=== PATIENT | female | born 1955 | race Caucasian/White ===

== ENCOUNTER 2019-11-12 16:16 | Outpatient (RCR) | payer BC, SELFPAY | END 2019-12-01 23:59 | disposition home or self-care (01) | LOC: SPT 16:16 | PROVIDERS: PCP Family Medicine; Visit Provider Orthopaedic Surgery | DX: Z47.1 Aftercare following joint replacement surgery (principal); Z96.652 Presence of left artificial knee joint | CPT/HCPCS: 97110; 97161 ==

== ENCOUNTER 2019-12-02 03:52 | Outpatient (RCR) | payer BC, SELFPAY | END 2020-01-01 23:59 | disposition home or self-care (01) | LOC: SPT 03:52 | PROVIDERS: PCP Family Medicine; Visit Provider Orthopaedic Surgery | DX: Z47.1 Aftercare following joint replacement surgery (principal); Z96.652 Presence of left artificial knee joint | CPT/HCPCS: 97110; 97164 ==

== ENCOUNTER 2020-01-02 06:00 | Outpatient (RCR) | payer BC, SELFPAY | END 2020-02-01 23:59 | disposition home or self-care (01) | LOC: SPT 06:00 | PROVIDERS: PCP Family Medicine; Visit Provider Orthopaedic Surgery | DX: Z47.1 Aftercare following joint replacement surgery (principal); Z96.652 Presence of left artificial knee joint | CPT/HCPCS: 97110 ==

== ENCOUNTER 2020-04-04 06:00 | Outpatient (RCR) | payer MEDICARE, SELFPAY | END 2020-05-02 23:59 | disposition home or self-care (01) | LOC: APT 06:00 | PROVIDERS: PCP Family Medicine; Referring Provider Orthopaedic Surgery; Visit Provider Orthopaedic Surgery | DX: Z47.1 Aftercare following joint replacement surgery (principal); Z96.651 Presence of right artificial knee joint | CPT/HCPCS: 97110; 97162 ==

== ENCOUNTER 2020-05-03 06:00 | Outpatient (RCR) | payer MEDICARE, SELFPAY | END 2020-06-02 23:59 | disposition home or self-care (01) | LOC: APT 06:00 | PROVIDERS: PCP Family Medicine; Referring Provider Orthopaedic Surgery; Visit Provider Orthopaedic Surgery | DX: Z47.1 Aftercare following joint replacement surgery (principal); Z96.651 Presence of right artificial knee joint | CPT/HCPCS: 97110; 97140 ==

== ENCOUNTER 2020-06-03 06:00 | Outpatient (RCR) | payer MEDICARE, SELFPAY | END 2020-07-03 23:59 | disposition home or self-care (01) | LOC: APT 06:00 | PROVIDERS: PCP Family Medicine; Referring Provider Orthopaedic Surgery; Visit Provider Orthopaedic Surgery | DX: Z47.1 Aftercare following joint replacement surgery (principal); Z96.652 Presence of left artificial knee joint | CPT/HCPCS: 97110; 97140 ==

== ENCOUNTER 2020-06-28 14:42 | Outpatient (CLI) | payer MEDICARE, SELFPAY ==
--- NOTE | 2020-06-28 14:52 | XR_ITS ---
WS: [id number] CHEST 2 VIEWS HISTORY: DYSPNEA COMPARISON: None. Lungs: Mild elevation of the RIGHT hemidiaphragm with RIGHT basilar atelectasis or compressive atelec tasis. LEFT lung is clear. Cardiac size: Normal. Mediastinum/Aorta: Normal mediastinum. Bones: Increase in thoracic kyphosis. Prior anterior cervical fusion. XR/XR chest 2V* [id number] IMPRESSION: 1. Mild elevation of the RIGHT diaphragm with RIGHT basilar atelectasis. 2. No pneumonia.
--- NOTE | 2020-06-28 14:52 | XR_ITS ---
WS: [id number] CERVICAL SPINE 5 VIEWS HISTORY: CERVICAL RADICULOPATHY, RIGHT COMPARISON: None available. TECHNIQUE: AP, oblique and lateral radiographs. Lateral in neutral, flexion and extension. Straightening of the normal cervical lordosis. C4 retrolisthesis by 2.5 mm. The retrolisthesis increa ses to 3.1 mm during extension. Severe disc space narrowing at C4-5. Anterior cervical fusion from C5 to C7 with interbody spacers. No change in position of the hardware from flexion or extension. There is also very slight retrolisthesis of C3 which does not change with flexion or extension. Later al masses of C1 and C2 are aligned. XR/XR cervical spine 4-5V [id number] IMPRESSION: 1. Retrolisthesis of C3 and C4. No significant change during flexion or extens ion. 2. Prior anterior cervical fusion from C5 to C7 with interbody spacers. 3. Severe disc space narrowing at C4-5 with endplate osteophytes at the disc l evel.
== END 2020-06-28 14:43 | disposition home or self-care (01) ==
PROVIDERS: PCP Family Medicine; Visit Provider Family Medicine
DX: M54.12 Radiculopathy, cervical region (principal); R06.00 Dyspnea, unspecified; J98.11 Atelectasis; M25.78 Osteophyte, vertebrae; M43.22 Fusion of spine, cervical region
CPT/HCPCS: 71046; 72050

== ENCOUNTER 2020-12-13 13:31 | Outpatient (CLI) | payer MEDICARE, SELFPAY ==
--- NOTE | 2020-12-13 13:39 | US_ITS ---
WS: [id number] ULTRASOUND RENAL TECHNIQUE: Ultrasound examination of both kidneys. CLINICAL INFORMATION: HEMATURIA COMPARISON: None. FINDINGS: RIGHT: Right kidney is normal in size and appearance. Echogenicity: Normal. Cortical thickness: 1.3 cm; Normal. Hydronephrosis: None. Perinephric fluid: None. Right kidney measures: 11.3,11.3 cm x 5.5 cm x 5.3 cm. LEFT: Left kidney is normal in size and appearance. Echogenicity: Normal. Cortical thickness: 1.4 cm; Normal. Hydronephrosis: None. Perinephric fluid: None. Left kidney measures: 12.5 cm x 5.3 cm x 4.6 cm. Normal visualized aorta. Normal bladder US/US renal BI* [id number] IMPRESSION: 1. No hydronephrosis in either kidney. 2. Normal bladder.
== END 2020-12-13 13:32 | disposition home or self-care (01) ==
LOC: US 13:33
PROVIDERS: PCP Family Medicine; Visit Provider Family Medicine
DX: R31.9 Hematuria, unspecified (principal)
CPT/HCPCS: 76770

== ENCOUNTER 2021-04-13 12:53 | Outpatient (CLI) | payer MEDICARE, SELFPAY ==
--- NOTE | 2021-04-13 12:57 | XR_ITS ---
WS: [id number] PROCEDURE: XR chest 2V* [id number] CLINICAL INFORMATION: COUGH COMPARISON: June 28, 2020 FINDINGS: Heart: Cardiomegaly. Lungs: Lungs are clear. No consolidation or pleural fluid. No acute pulmonary infiltrates. Bones: Postoperative changes lower cervical spine. Mild thoracic kyphosis. Mild spondylitic changes. Mild chronic anterior wedging in the mid and lower thoracic spine. XR/XR chest 2V* [id number] IMPRESSION: No acute chest findings
== END 2021-04-13 12:54 | disposition home or self-care (01) ==
PROVIDERS: PCP Family Medicine; Visit Provider Family Medicine
DX: R05.9 Cough, unspecified (principal)
CPT/HCPCS: 71046

== ENCOUNTER 2021-04-16 10:19 | Emergency (ER) | payer MEDICARE, SELFPAY ==
[2021-04-16] VITALS (7 sets, daily range): BP systolic 87–110; BP diastolic 51–61; PULSE 90–111; RESP 15–25; TEMP 37.3; O2SAT 94–97; BMI 33.1
--- NOTE | 2021-04-16 11:35 | W.ED.GENADLT ---
HPI - General Adult General: Chief complaint: General Medical Stated complaint: FEVER/ACHES/CHILLS/N,V Time Seen by Provider: 04/16/21 11:10 History of Present Illness: HPI narrative: This patient presents to the emergency department from home. She states she has had body aches and chills for the last several days. She is has also developed nausea vomiting and diarrhea. She states that she is not been knowingly exposed to any infectious disease. No recent travel. States her family members and are not ill. She was seen by her primary care doctor last week and had some basic work-up which was unrevealing to include a chest x-ray as well as flu swab. She states she has not taken her normal medications today as she is feeling light and weak and have joint aches and body aches. She denies cough of any significance. No abdominal pain other than from repetitive vomiting. There is no blood in her emesis or her stool. She had a prior hysterectomy. Has hypertension. Has had a prior history of kidney stones. She has been having backaches but it's also associated with her other myalgias. She is immunized against COVID-19. Onset (ago): day(s) Associated symptoms: Reports malaise, nausea and vomiting; Deny chest pain, dyspnea, headache(s), rash or palpitations Review of Systems Const: Reports: fever(s), chills, body aches and malaise Eyes: Denies: change in vision ENMT: Denies: throat pain, odynophagia or dental pain Card: Denies: chest pain or palpitations Resp: Denies: dyspnea, productive cough or stridor GI: Reports: nausea, vomiting and diarrhea; Denies: abdominal pain or hematemesis : Denies: flank pain, difficulty voiding, dysuria, urinary frequency or urinary urgency Skin/Breast: Denies: rash or pruritus Neuro: Denies: headache(s), numbness in extremities or dizziness Psych: Denies: anxiety or depression Rubin/Lymph: Denies: easy bruising or easy bleeding Physical Exam Const: COMMON NORMALS: no acute distress, patient oriented x3 and healthy appearing GENERAL APPEARANCE: cooperative ORIENTATION/CONSCIOUSNESS: Yes awake HENMT: COMMON NORMALS: normocephalic and Normal external nose present HEAD & SCALP: normocephalic FACE & SINUS: normal facial exam and sinuses nontender NOSE: Normal external nose present and Normal nares present MOUTH: Normal oral and palatal mucosa present THROAT: posterior oropharynx normal Eye: COMMON NORMALS: Equal, round and reactive pupils present, EOMs intact bilaterally and no scleral icterus PUPIL: Yes Equal, round and reactive pupils present Neck/C-Spine: COMMON NORMALS: full ROM, no lymphadenopathy, supple and no meningeal signs Chest: COMMONS NORMALS: normal inspection of the chest Resp: COMMON NORMALS: normal respiratory effort, No retractions, No use of accessory muscles and clear to auscultation bilaterally AUSCULTATION: clear to auscultation bilaterally Cardio: COMMON NORMALS: regular rhythm, No murmurs present (Cardio) and Peripheral pulses 2+ throughout RATE: tachycardic RHYTHM: regular rhythm PERIPHERAL PULSES: Peripheral pulses 2+ throughout GI: COMMON NORMALS: Normal to inspection, nondistended, normoactive bowel sounds present, Soft to palpation, non-tender and No hepatosplenomegaly present PALPATION: Yes Soft to palpation and Yes No hepatosplenomegaly present : COMMON NORMALS: Yes no CVA tenderness BLADDER/KIDNEY EXAM: Yes no CVA tenderness Back/Pelvis: COMMON NORMALS: no CVA tenderness, thoracic and lumbar spine normal to inspection and thoraco-lumbar ROM normal Extremity: COMMON NORMALS: normal to inspection (No joint erythema. Normal range of motion in all joints.), full ROM, no joint enlargement, no calf tenderness and no pedal edema Neuro: COMMON NORMALS: patient oriented x3, moves all extremities, no focal motor deficits, no sensory deficits noted and gait normal MENINGEAL SIGNS: Yes no meningeal signs Psych: COMMON NORMALS: mental status grossly normal Skin: COMMON NORMALS: no rashes or lesions noted and no wounds GENERAL SKIN EXAM: no rashes or lesions noted Course Reevaluation(s): Reevaluation #1: Patient's urinalysis certainly is revealing for signs of urinary tract infection. Is noted that her transaminases ACEs as well as her bilirubin and alk phos are elevated. We will go ahead and proceed with a gallbladder ultrasound to ensure there is no occult biliary tract disease at this time. Should be noted her exam was pretty unremarkable regarding her abdominal exam but she has been vomiting and this may be related to her primary infection or certainly could be an occult biliary tract issue. Time: 14:10 Reevaluation #2: Patient states subjectively she is feeling better. Her heart rate is down in the 90s and her blood pressure is now in the 1 teens systolic so both subjectively and objectively improving. We will orally replete her hypokalemia. Time: 16:26 Reevaluation #3: Patient continues to be improved. Heart rate blood pressure within normal limits. No evidence of to suggest sepsis etc. that requires hospitalization or prolonged observation at this time. Her gallbladder ultrasound is reassuring. I think her transaminitis was likely due to her acute vomiting episodes. I did recommend that she have her liver enzymes rechecked in 2 to 3 weeks when she is feeling better. She subjectively feels better. Will plan on discharge to outpatient antibiotics and antiemetics. Her potassium has been repleted orally in the emergency department I do not expect an ongoing issue with that electrolyte abnormality as long as her vomiting is controlled. I discussed expected course with the patient and spouse. Also discussed return precautions. All questions were answered. Stable for discharge. Vital Signs: Vital signs: Vital Signs Temperature 99.1 F 04/16/21 10:46 Pulse Rate 90 04/16/21 15:59 Respiratory Rate 16 04/16/21 15:59 Blood Pressure 92/51 04/16/21 15:59 Pulse Oximetry 95 04/16/21 15:59 MDM - General Adult Lab Data: Labs: Lab Results 04/16/21 04/16/21 04/16/21 11:48 11:50 11:50 WBC 14.9 10^3/uL H 10 ^3/uL (4.0-10.0) RBC 4.25 10^6/uL 10^6 /uL (4.1-5.3) Hgb 12.6 g/dL g/dL (11.5-15.3) Hct 37.5 % % (37.0-47.0) MCV 88.2 fl fl (81-99) MCH 29.6 pg pg (28.0-34.0) MCHC 33.6 g/dL g/dL (30.0-36.0) RDW 13.2 % % (12.1-15.1) Plt Count 184 10^3/cmm 10^3 /cmm (130-400) MPV 10.6 fL H fL (7.4-10.4) Neut % (Auto) 89.6 % % Lymph % (Auto) 2.6 % % [place] % (Auto) 4.9 % % Eos % (Auto) 1.2 % % Baso % (Auto) 0.5 % % Neut # (Auto) 13.36 10^3/uL H 1 0^3/uL (1.8-7.7) Lymph # (Auto) 0.4 10^3/uL L 10^ 3/uL (0.8-4.8) [place] # (Auto) 0.7 10^3/uL 10^3/ uL (0.2-0.9) Eos # (Auto) 0.2 10^3/uL 10^3/ uL (0.0-0.8) Baso # (Auto) 0.1 10^3/uL 10^3/ uL (0.0-0.1) Nucleated RBC % (a uto) 0 % % Nucleated RBCs # 0.0 /100WBC /100W BC Sodium Cancelled Potassium Cancelled Chloride Cancelled Carbon Dioxide Cancelled Anion Gap Cancelled BUN Cancelled Creatinine Cancelled GFR Calculation Cancelled Glucose Cancelled Calculated Osmolal ity Cancelled Lactic Acid Lactate Calcium Cancelled Total Bilirubin Cancelled AST Cancelled ALT Cancelled Alkaline Phosphata se Cancelled Total Protein Cancelled Albumin Cancelled Globulin Cancelled Urine Color Urine Appearance Urine pH Ur Specific Gravit y Urine Protein Urine Glucose (UA) Urine Ketones Urine Blood Urine Nitrate Urine Bilirubin Urine Urobilinogen Ur Leukocyte [place] Urine RBC Urine WBC Ur Squamous Epith Cells Amorphous Sediment Urine Bacteria Coarse Granular Ca sts Urine Mucus SARS-CoV-2 Ag (Rap id) Negative (Negative) 04/16/21 04/16/21 04/16/21 11:50 12:45 12:55 WBC RBC Hgb Hct MCV MCH MCHC RDW Plt Count MPV Neut % (Auto) Lymph % (Auto) [place] % (Auto) Eos % (Auto) Baso % (Auto) Neut # (Auto) Lymph # (Auto) [place] # (Auto) Eos # (Auto) Baso # (Auto) Nucleated RBC % (a uto) Nucleated RBCs # Sodium 135 mmol/L L mmol /L (136-145) Potassium 2.9 mmol/L L mmol /L (3.5-5.1) Chloride 101 mmol/L mmol/L (98-107) Carbon Dioxide 21 mmol/L L mmol/ L (22-29) Anion Gap 15.9 (5-19) BUN 40 mg/dL H mg/dL (8-23) Creatinine 1.1 mg/dL H mg/dL (0.5-0.9) GFR Calculation 49.8 mL/min L mL/ min (90-130) Glucose 139 mg/dL H mg/dL (65-115) Calculated Osmolal ity 292 mOsm/kg mOsm/ kg (285-295) Lactic Acid Lactate Cancelled Calcium 8.4 mg/dL L mg/dL (8.5-10.5) Total Bilirubin 1.8 mg/dL H mg/dL (0.15-1.2) AST 48 U/L H U/L (0-32) ALT 41 U/L H U/L (0-33) Alkaline Phosphata se 171 IU/L H IU/L (35-105) Total Protein 6.5 g/dL L g/dL (6.6-8.7) Albumin 3.0 g/dL L g/dL (3.5-5.2) Globulin 3.5 g/dL g/dL (1.3-4.6) Urine Color Yellow (Yellow) Urine Appearance Cloudy (CLEAR) Urine pH 5 (5-7) Ur Specific Gravit y 1.010 (1.005-1.030) Urine Protein 2+ H (Negative) Urine Glucose (UA) Norm (Normal) Urine Ketones Negative (Negative) Urine Blood 3+ H (Negative) Urine Nitrate Positive H (Negative) Urine Bilirubin 1+ H (Negative) Urine Urobilinogen 4 mg/dL H mg/dL (Negative) Ur Leukocyte [place] 2+ H (Negative) Urine RBC 0-4 /hpf H /hpf (0-2) Urine WBC 55-80 /hpf H /hpf (0-5) Ur Squamous Epith Cells 0-4 /hpf H /hpf (0-5) Amorphous Sediment 1+ /hpf /hpf Urine Bacteria 2+ /hpf H /hpf (NONE) Coarse Granular Ca sts 5-10 /lpf H /lpf Urine Mucus Trace /hpf /hpf SARS-CoV-2 Ag (Rap id) 04/16/21 12:56 WBC RBC Hgb Hct MCV MCH MCHC RDW Plt Count MPV Neut % (Auto) Lymph % (Auto) [place] % (Auto) Eos % (Auto) Baso % (Auto) Neut # (Auto) Lymph # (Auto) [place] # (Auto) Eos # (Auto) Baso # (Auto) Nucleated RBC % (a uto) Nucleated RBCs # Sodium Potassium Chloride Carbon Dioxide Anion Gap BUN Creatinine GFR Calculation Glucose Calculated Osmolal ity Lactic Acid 1.7 mmol/L mmol/L (0.5-2.2) Lactate Calcium Total Bilirubin AST ALT Alkaline Phosphata se Total Protein Albumin Globulin Urine Color Urine Appearance Urine pH Ur Specific Gravit y Urine Protein Urine Glucose (UA) Urine Ketones Urine Blood Urine Nitrate Urine Bilirubin Urine Urobilinogen Ur Leukocyte [place] Urine RBC Urine WBC Ur Squamous Epith Cells Amorphous Sediment Urine Bacteria Coarse Granular Ca sts Urine Mucus SARS-CoV-2 Ag (Rap id) Discharge Plan Discharge Patient Disposition: Home Clinical Impression: Acute pyelonephritis, Transaminitis, Acute hypokalemia Condition: Stable Prescriptions: New cephalexin [Keflex] 750 mg capsule 750 mg PO BID 10 Days Qty: 20 RF: 0 ondansetron 4 mg tablet,disintegrating 4 mg PO Q8H 3 Days Qty: 9 RF: 0 Discharge Orders: Discharge ED (Routine); Ordered 04/16/21 Ordered By: Bob Donnelly Referrals: Tommy Cutler MD [Primary Care Provider] - 2 weeks Discharge Diet: Usual diet Discharge Activity: Resume usual activity Patient Instructions: Opioid Safety Activity Restrictions/Additional Instructions: Make sure you are drinking at least 64 ounces of water or other fluids daily. Take the antibiotics as prescribed. You may use tinnitus and nausea medicine as needed for any nausea or vomiting. If your symptoms do not continue to improve by the end of 3 days or worsen at any time return to this or the nearest emergency department. Follow-up with your doctor in another 2 weeks or so to have your liver tests rechecked. 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
--- NOTE | 2021-04-16 12:03 | PC.NURSE ---
pt placed on continuous spo2, nibp, and cm.
[2021-04-16] MEDS: sodium chloride 0.9% 1,000 ML 999 ML IV (12:14)
[2021-04-16 12:18] LABS: Basophils # 0.1 10^3/uL (0.0-0.1); Basophils % 0.5 %; Eosinophils # 0.2 10^3/uL (0.0-0.8); Eosinophils % 1.2 %; Hematocrit 37.5 % (37.0-47.0); Hemoglobin 12.6 g/dL (11.5-15.3); Lymphocytes # 0.4 10^3/uL (0.8-4.8); Lymphocytes % 2.6 %; Mean Corpuscular HGB Conc 33.6 g/dL (30.0-36.0); Mean Corpuscular Hemoglobin 29.6 pg (28.0-34.0); Mean Corpuscular Volume 88.2 fl (81-99); Mean Platelet Volume 10.6 fL (7.4-10.4); Monocytes # 0.7 10^3/uL (0.2-0.9); Monocytes % 4.9 %; Neutrophils # 13.36 10^3/uL (1.8-7.7); Neutrophils % 89.6 %; Nucleated Red Blood Cells % 0 %; Platelet Count 184 10^3/cmm (130-400); Red Blood Count 4.25 10^6/uL (4.1-5.3); Red Cell Distribution Width 13.2 % (12.1-15.1); White Blood Count 14.9 10^3/uL (4.0-10.0)
[2021-04-16 12:41] LABS: SARS Covid-2 Antigen Negative (Negative)
[2021-04-16 13:10] LABS: Glucose Urine UA Norm (Normal); Ketones Urine Negative (Negative); Protein Urine 2+ (Negative); Urine Appearance Cloudy (CLEAR); Urine Color Yellow (Yellow); pH Urine 5 (5-7)
[2021-04-16 13:11] LABS: Add Urine Microscopic? YES; Bilirubin Urine 1+ (Negative); Blood Urine 3+ (Negative); Leukocyte Esterase Urine 2+ (Negative); Nitrate Urine Positive (Negative); Urobilinogen Urine 4 mg/dL (Negative)
[2021-04-16 13:12] LABS: Alanine Aminotransferase 41 U/L (0-33); Alkaline Phosphatase 171 IU/L (35-105); Anion Gap 15.9 (5-19); Aspartate Amino Transferase 48 U/L (0-32); Blood Urea Nitrogen 40 mg/dL (8-23); Calcium 8.4 mg/dL (8.5-10.5); Carbon Dioxide 21 mmol/L (22-29); Chloride 101 mmol/L (98-107); Globulin 3.5 g/dL (1.3-4.6); Glomerular Filtration Rate 49.8 mL/min (90-130); Glucose 139 mg/dL (65-115); Osmolality Calculated 292 mOsm/kg (285-295); Sodium 135 mmol/L (136-145); Total Bilirubin 1.8 mg/dL (0.15-1.2); Total Protein 6.5 g/dL (6.6-8.7)
[2021-04-16 13:19] LABS: Lactic Sepsis W/Reflex 1.7 mmol/L (0.5-2.2)
[2021-04-16 13:37] LABS: RBC Urine 0-4 /hpf (0-2); WBC Urine 55-80 /hpf (0-5)
[2021-04-16 13:38] LABS: Bacteria Urine 2+ /hpf; Mucus Urine TRACE /hpf; Squamous Epithelial Cell Urine 0-4 /hpf (0-5)
[2021-04-16 13:39] LABS: Add Urine Culture? Yes; Amorphous Sediment Urine 1+ /hpf
[2021-04-16 13:42] LABS: Potassium 2.9 mmol/L (3.5-5.1)
[2021-04-16] MEDS: ketorolac 30 mg/mL INJ 15 MG IVP (13:45)
[2021-04-16] MEDS: ondansetron 2 mg/ML SDV 2 mL 4 MG IVP (13:48)
[2021-04-16] MEDS: cefTRIAXone 2,000 MG in sodium chloride 0.9% (plus) 50 ML 100 MG IV (13:50)
--- NOTE | 2021-04-16 14:04 | USR_ITS ---
PROCEDURE INFORMATION: Exam: US Abdomen, Limited; Right Upper Quadrant Exam date and time: 04/16/2021 2:04 PM Age: 65 years old Clinical indication: Abdominal pain; Acute; Additional info: Elevation in transaminases, bilirubin. TECHNIQUE: Imaging protocol: US abdomen. Real time ultrasound with image documentation. Limited exam focused on the right upper quadrant. COMPARISON: CT Abdomen/Pelvis Renal [id number] 09/29/2018 4:35 PM FINDINGS: Liver: Unremarkable. Gallbladder: No gallstones. No gallbladder wall thickening or pericholecystic fluid. Negative sonographic Wells's sign, as per the performing director of analytical development. Common bile duct: No stones. No ductal dilatation. Pancreas: Unremarkable as visualized. Right kidney: No mass. No definite stones. No hydronephrosis. US/US abdomen limited [id number] IMPRESSION: No acute sonographic findings. Radiation Dose CTDIVOL = (mGy): DLP = (mGy-cm)
[2021-04-16] MEDS: potassium bicarb 25 mEq Tablet 50 MEQ PO (14:18)
== END 2021-04-16 16:46 | disposition home or self-care (01) ==
PROVIDERS: Emergency Provider Emergency Medicine; PCP Family Medicine
DX: N10 Acute pyelonephritis (principal); R74.01 Elevation of levels of liver transaminase levels; E87.6 Hypokalemia; Z20.822 Contact with and (suspected) exposure to COVID-19
CPT/HCPCS: 76705; 80053; 81001; 83605; 85025; 87040; 87077; 87086; 87186; 87205; 87426; 96361; 96365; 96375; 99284; J0696; J1885; J2405; J7030

== ENCOUNTER 2021-04-17 19:03 | Inpatient (IN) | payer MEDICARE, SELFPAY ==
[2021-04-17] VITALS (9 sets, daily range): BP systolic 97–113; BP diastolic 54–71; PULSE 104–136; RESP 16–21; TEMP 36.2–36.7; O2SAT 94–99; BMI 33.1
[2021-04-17] MEDS: sodium chloride 0.9% 1,000 ML 999 ML IV (19:36)
[2021-04-17 19:48] LABS: Basophils # 0.1 10^3/uL (0.0-0.1); Basophils % 0.5 %; Eosinophils # 0.1 10^3/uL (0.0-0.8); Eosinophils % 0.5 %; Hematocrit 33.3 % (37.0-47.0); Hemoglobin 11.7 g/dL (11.5-15.3); Lymphocytes # 1.2 10^3/uL (0.8-4.8); Lymphocytes % 9.3 %; Mean Corpuscular HGB Conc 35.1 g/dL (30.0-36.0); Mean Corpuscular Hemoglobin 29.8 pg (28.0-34.0); Mean Corpuscular Volume 84.7 fl (81-99); Mean Platelet Volume 10.7 fL (7.4-10.4); Monocytes # 1.2 10^3/uL (0.2-0.9); Monocytes % 9.3 %; Neutrophils # 10.28 10^3/uL (1.8-7.7); Neutrophils % 79.9 %; Nucleated Red Blood Cells % 0 %; Platelet Count 202 10^3/cmm (130-400); Red Blood Count 3.93 10^6/uL (4.1-5.3); Red Cell Distribution Width 13.2 % (12.1-15.1); White Blood Count 12.9 10^3/uL (4.0-10.0)
--- NOTE | 2021-04-17 20:04 | ED_ITS ---
HPI - General Adult General: Chief complaint: Arrhythmia/Palpitations Stated complaint: Heart Rate 150 Erratic\Blood Pressure Low Time Seen by Provider: 04/17/21 19:18 History of Present Illness: HPI narrative: Patient is a 65-year-old female with history of recurrent UTI, hypertension, hyperlipidemia who presents the emergency room for concerns of fast heart rate. Patient tells me that she was seen yesterday for UTI symptoms. This morning, patient has had right-sided flank pain. Patient called her primary care provider and took the first dose of ciprofloxacin. Continues to have polyuria symptoms. Earlier today, patient was noted to have fast heart rate and feeling lightheadedness. Patient tells me that her daughter took her blood pressure and noticed that it was low. Patient presents the emergency room for evaluation. On arrival, patient was noted to be in atrial fibrillation with RVR in the 140s. No complaints of chest pain, shortness of breath, focal weakness, diarrhea, melena, hematochezia, or thyroid issues. No prior hx of atrial fibrillation. Onset: earlier today Duration: ongoing Location:home Severity:moderate Review of Systems Narrative: Constitutional: No fever, no chills. HEENT: No vision changes CV: No chest pain, +palpitations PULM: no cough, no dyspnea. GI: No abdominal pain, no N/V/D. + R flank pain : +polyuria, no dysuria MSKEL: No muscle pain SKIN: No new rashes, no lesions. NEURO: No headache, no focal weakness. HEME: No visible bruises PSYCH: Normal mood Physical Exam Narrative: EXAM NARRATIVE: Head: Atraumatic Eyes: PERRL, conjunctiva without injection ENT: Mucous membrane moist NECK: Supple, ROM intact LUNGS: LCTAB, no crackles/rhonchi CV: Irregularly irregular tachycardia ABDOMEN: Soft, No focal TTP. NO guarding rebound, guarding, rigidity. +R CVA tenderness to percussion. Neg Wells/Neg McBurney's point tenderness, no suprabupic tenderness to palpation. +suprapubic tenderness EXTREMITY: Normal ROM SKIN: No rash or erythema NEURO: Awake and alert, no focal motor deficits PSYCH: Normal mood and affect Course Vital Signs: Vital signs: Vital Signs Temperature 98.1 F 04/17/21 19:18 Pulse Rate 104 H 04/17/21 20:28 Respiratory Rate 18 04/17/21 20:28 Blood Pressure 108/71 04/17/21 19:37 Pulse Oximetry 99 04/17/21 20:28 MDM - General Adult MDM Narrative: Medical decision making narrative: 65-year-old female with history of recurrent UTI, hypertension, hyperlipidemia presenting to the emergency room concerns for palpitation and ongoing polyuria. On exam, patient is noted to be in atrial fibrillation with RVR to the 150s. BP within normal limit. On exam, patient has mild right CVA tenderness and suprapubic tenderness. Given new onset of afib, will workup etiology today. White count of 12.9. Patient denies any nausea or vomiting or fever at this time. Patient received 2 L IVF, 2.5 mg of metoprolol with improvement of heart rate. Patient has no prior history of atrial fibrillation. S/p ceftriaxone for pyelonephritis. CT non con showed 3.6 mm R UVJ. Case was dsicussed with Dr. Lezama at 10:17pm with recommendation for ABX and reasssessment in the AM. Disposition: Admission Lab Data: Labs: Lab Results 04/17/21 04/17/21 04/17/21 19:36 19:36 19:36 WBC 12.9 10^3/uL H 10 ^3/uL (4.0-10.0) RBC 3.93 10^6/uL L 10 ^6/uL (4.1-5.3) Hgb 11.7 g/dL g/dL (11.5-15.3) Hct 33.3 % L % (37.0-47.0) MCV 84.7 fl fl (81-99) MCH 29.8 pg pg (28.0-34.0) MCHC 35.1 g/dL g/dL (30.0-36.0) RDW 13.2 % % (12.1-15.1) Plt Count 202 10^3/cmm 10^3 /cmm (130-400) MPV 10.7 fL H fL (7.4-10.4) Neut % (Auto) 79.9 % % Lymph % (Auto) 9.3 % % Storey % (Auto) 9.3 % % Eos % (Auto) 0.5 % % Baso % (Auto) 0.5 % % Neut # (Auto) 10.28 10^3/uL H 1 0^3/uL (1.8-7.7) Lymph # (Auto) 1.2 10^3/uL 10^3/ uL (0.8-4.8) Storey # (Auto) 1.2 10^3/uL H 10^ 3/uL (0.2-0.9) Eos # (Auto) 0.1 10^3/uL 10^3/ uL (0.0-0.8) Baso # (Auto) 0.1 10^3/uL 10^3/ uL (0.0-0.1) Nucleated RBC % (a uto) 0 % % Nucleated RBCs # 0.0 /100WBC /100W BC Sodium 130 mmol/L L mmol /L (136-145) Potassium 3.1 mmol/L L mmol /L (3.5-5.1) Chloride 94 mmol/L L mmol/ L (98-107) Carbon Dioxide 24 mmol/L mmol/L (22-29) Anion Gap 15.1 (5-19) BUN 31 mg/dL H mg/dL (8-23) Creatinine 1.0 mg/dL H mg/dL (0.5-0.9) GFR Calculation 55.6 mL/min L mL/ min (90-130) Glucose 135 mg/dL H mg/dL (65-115) Calculated Osmolal ity 279 mOsm/kg L mOs m/kg (285-295) Calcium 8.2 mg/dL L mg/dL (8.5-10.5) Magnesium 2.2 mg/dL mg/dL (1.7-2.3) Total Bilirubin 1.2 mg/dL mg/dL (0.15-1.2) AST 57 U/L H U/L (0-32) ALT 46 U/L H U/L (0-33) Alkaline Phosphata se 221 IU/L H IU/L (35-105) Troponin T Baselin e 45 ng/L H ng/L (0-10) Total Protein 5.8 g/dL L g/dL (6.6-8.7) Albumin 3.0 g/dL L g/dL (3.5-5.2) Globulin 2.8 g/dL g/dL (1.3-4.6) TSH 0.65 uIU/mL uIU/m L (0.27-4.20) Urine Color Urine Appearance Urine pH Ur Specific Gravit y Urine Protein Urine Glucose (UA) Urine Ketones Urine Blood Urine Nitrate Urine Bilirubin Urine Urobilinogen Ur Leukocyte Jodi ase Urine RBC Urine WBC Ur Squamous Epith Cells Amorphous Sediment Urine Bacteria Urine Opiates Scre en Ur Barbiturates Sc reen Ur Phencyclidine S crn Ur Amphetamines Sc reen U Benzodiazepines Scrn Urine Cocaine Scre en U Marijuana (THC) Screen 04/17/21 04/17/21 20:18 20:18 WBC RBC Hgb Hct MCV MCH MCHC RDW Plt Count MPV Neut % (Auto) Lymph % (Auto) Storey % (Auto) Eos % (Auto) Baso % (Auto) Neut # (Auto) Lymph # (Auto) Storey # (Auto) Eos # (Auto) Baso # (Auto) Nucleated RBC % (a uto) Nucleated RBCs # Sodium Potassium Chloride Carbon Dioxide Anion Gap BUN Creatinine GFR Calculation Glucose Calculated Osmolal ity Calcium Magnesium Total Bilirubin AST ALT Alkaline Phosphata se Troponin T Baselin e Total Protein Albumin Globulin TSH Urine Color Yellow (Yellow) Urine Appearance Clear (CLEAR) Urine pH 5 (5-7) Ur Specific Gravit y 1.005 (1.005-1.030) Urine Protein Trace (Negative) Urine Glucose (UA) Norm (Normal) Urine Ketones Negative (Negative) Urine Blood 3+ H (Negative) Urine Nitrate Negative (Negative) Urine Bilirubin Neg (Negative) Urine Urobilinogen 4 mg/dL H mg/dL (Negative) Ur Leukocyte Jodi ase 1+ H (Negative) Urine RBC 0-4 /hpf H /hpf (0-2) Urine WBC 10-15 /hpf H /hpf (0-5) Ur Squamous Epith Cells 0-4 /hpf H /hpf (0-5) Amorphous Sediment Not Reportable Urine Bacteria 2+ /hpf H /hpf (NONE) Urine Opiates Scre en Negative ng/mL ng /mL (Negative) Ur Barbiturates Sc reen Negative ng/mL ng /mL (Negative) Ur Phencyclidine S crn Negative ng/mL ng /mL (Negative) Ur Amphetamines Sc reen Negative ng/mL ng /mL (Negative) U Benzodiazepines Scrn Negative ng/mL ng /mL (Negative) Urine Cocaine Scre en Negative ng/mL ng /mL (Negative) U Marijuana (THC) Screen Negative ng/mL ng /mL (Negative) Imaging Data^: Other Imaging: Radiologist's impression: [employer] [address] [id number] Scan ReportSigned Patient: Stephanie Koroma #: [id number]: 5Acct#:[id number]/Sex: 65 / FADM Date: 04/17/21Loc: ERRoom/Bed:Attending Dr: Ordering Provider/Ordering MD: Brooklynn Sol MD Date of Service: 04/17/21 Procedure(s): CT kidney stone [id number] Accession Number(s): [id number] Report Number: [id number] PROCEDURE INFORMATION: Exam: CT Abdomen And Pelvis Without Contrast Exam date and time: 04/17/2021 9:24 PM Age: 65 years old Clinical indication: Abdominal pain; Other: Back; Prior surgery; Surgery type: Hyst; Additional info: Eval for stone TECHNIQUE: Imaging protocol: Computed tomography of the abdomen and pelvis without contrast. Radiation optimization: All CT scans at this facility use at least one of these dose optimization techniques: automated exposure control; mA and/or kV adjustment per patient size (includes targeted exams where dose is matched to clinical indication); or iterative reconstruction. COMPARISON: CT Abdomen/Pelvis Renal [id number] 09/29/2018 4:35 PM RADIATION DOSE METRICS: Total DLP (mGy-cm): 1926.6 FINDINGS: Limitations: Evaluation of solid organs and vasculature is limited without intravenous contrast. This is standard protocol for evaluation of possible urolithiasis. Lungs: Visualized lungs are clear. Pleural spaces: No pleural effusion. Heart: Visualized portions of the heart are unremarkable. Liver: The liver is unremarkable. Gallbladder and bile ducts: The gallbladder is unremarkable. No biliary ductal dilatation. Pancreas: The pancreas is unremarkable. No pancreatic ductal dilatation. Spleen: The spleen is unremarkable. Adrenal glands: The right and left adrenal glands are unremarkable. 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 3.6 mm stone at the right ureterovesicular junction with mild right hydroureteronephrosis and mild right perinephric inflammation at the lower pole moiety of the right kidney. The left kidney is unremarkable. The left ureter is unremarkable. Stomach and bowel: No obstruction. No mucosal thickening. Appendix: The appendix is visualized and is unremarkable. No findings to suggest acute appendicitis. Intraperitoneal space: No free intraperitoneal air. No ascites. No loculated fluid collections to suggest an abscess. Vasculature: Mild atherosclerotic changes in the visualized arteries. No evidence for aortic aneurysm. Incidental note of a retroaortic left renal vein. Lymph nodes: No lymphadenopathy. Urinary bladder: Unremarkable as visualized. Reproductive: Stable changes consistent with a previous hysterectomy. The ovaries are not definitely visualized, not an expected in a postmenopausal female. This may be due to ovarian atrophy. Alternatively, the patient may have had a previous bilateral oophorectomy. Findings are stable. Bones/joints: Degenerative changes in the spine and hips. Mild spinal canal stenosis at L1-L2 through L5-S1. Multilevel foraminal stenosis of varying severity in the lumbar spine. Osseous findings are stable. Soft tissues: No acute abnormality in the extra-abdominal soft tissues. CT/CT kidney stone [id number] IMPRESSION: 1. 3.6 mm stone at the right ureterovesicular junction with mild right hydroureteronephrosis and mild right perinephric inflammation at the lower pole moiety of the right kidney. 2. 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 3. Incidental/nonacute findings are listed in the report. Radiation Dose CTDIVOL = (mGy): DLP = 1926.6 (mGy-cm) Dictated By:Oliva Addison MDSigned By:Oliva Addison MDSigned Date/Time:04/17/213DD/ 23 Discharge Plan Discharge Patient Disposition: Admitted As Inpatient Admit Provider: Krista Mckeon Clinical Impression: Atrial fibrillation with RVR, Acute pyelonephritis, Kidney stone, Hydroureter Condition: Stable Coding Level of Care Code ED Wafer Machine Operator for Erasmo Vail
[2021-04-17 20:12] LABS: Alanine Aminotransferase 46 U/L (0-33); Alkaline Phosphatase 221 IU/L (35-105); Anion Gap 15.1 (5-19); Aspartate Amino Transferase 57 U/L (0-32); Blood Urea Nitrogen 31 mg/dL (8-23); Calcium 8.2 mg/dL (8.5-10.5); Carbon Dioxide 24 mmol/L (22-29); Chloride 94 mmol/L (98-107); Globulin 2.8 g/dL (1.3-4.6); Glomerular Filtration Rate 55.6 mL/min (90-130); Glucose 135 mg/dL (65-115); Magnesium 2.2 mg/dL (1.7-2.3); Osmolality Calculated 279 mOsm/kg (285-295); Potassium 3.1 mmol/L (3.5-5.1); Sodium 130 mmol/L (136-145); Thyroid Stimulating Hormone 0.65 uIU/mL (0.27-4.20); Total Bilirubin 1.2 mg/dL (0.15-1.2); Total Protein 5.8 g/dL (6.6-8.7)
[2021-04-17] MEDS: metoprolol tartrate 1 mg/1 mL SDV 5 mL 2.5 MG IVP (20:26)
[2021-04-17] MEDS: cefTRIAXone 1,000 MG in sodium chloride 0.9% (plus) 50 ML 100 MG IV (20:26)
[2021-04-17 20:36] LABS: Troponin(5th) Baseline 45 ng/L (0-10)
--- NOTE | 2021-04-17 20:49 | PC.NURSE ---
Attempted to call report on pt. No answer.
--- NOTE | 2021-04-17 21:07 | ECG_ITS ---
[facility] Test Date: 2021-04-18 Pat Name: Stephanie Koroma Department: Room: 111 Gender: Female Academic Affairs Dean: : 1955 Requested By: Colby Moore Order Number: [id number] Beny MD: Sejal East M.D. Measurements Intervals [place] Rate: 130 P: [place]: QRS: 24 QRSD: 89 T: 29 QT: 324 QTc: 478 Interpretive Statements ATRIAL FIBRILLATION WITH RAPID VENTRICULAR RESPONSE LOW QRS VOLTAGE [QRS DEFLECTION < 0.5/1.0 mV IN LIMB/CHEST LEADS] MINIMAL ST DEPRESSION [0.025+ mV ST DEPRESSION] Compared to ECG 04/18/2021 00:00:30 ST (T wave) deviation now present Electronically Signed On 04-18-2021 22:01:51 STERNMAN by Sejal East M.D. [id number]
[2021-04-17 21:13] LABS: Add Urine Microscopic? YES; Bilirubin Urine Neg (Negative); Blood Urine 3+ (Negative); Glucose Urine UA Norm (Normal); Ketones Urine Negative (Negative); Leukocyte Esterase Urine 1+ (Negative); Nitrate Urine Negative (Negative); Protein Urine Trace (Negative); Specific Gravity, Urine 1.005 (1.005-1.030); Urine Appearance Clear (CLEAR); Urine Color Yellow (Yellow); Urobilinogen Urine 4 mg/dL (Negative); pH Urine 5 (5-7)
[2021-04-17 21:14] LABS: RBC Urine 0-4 /hpf (0-2); Squamous Epithelial Cell Urine 0-4 /hpf (0-5)
[2021-04-17 21:15] LABS: Add Urine Culture? Yes; Amphetamines Screen Urine Negative (Negative); Bacteria Urine 2+ /hpf; Barbiturates Screen Urine Negative (Negative); Benzodiazepines Screen Urine Negative (Negative); Cocaine Screen Urine Negative (Negative); Opiate Screen Urine Negative (Negative); PCP Screen Urine Negative (Negative); THC Screen Urine Negative (Negative)
--- NOTE | 2021-04-17 21:18 | PC.NURSE ---
2116 Attempted to call report. AZAEL Valerio off of floor. Will call back.
--- NOTE | 2021-04-17 21:24 | CTR_ITS ---
PROCEDURE INFORMATION: Exam: CT Abdomen And Pelvis Without Contrast Exam date and time: 04/17/2021 9:24 PM Age: 65 years old Clinical indication: Abdominal pain; Other: Back; Prior surgery; Surgery type: Hyst; Additional info: Eval for stone TECHNIQUE: Imaging protocol: Computed tomography of the abdomen and pelvis without contrast. Radiation optimization: All CT scans at this facility use at least one of these dose optimization techniques: automated exposure control; mA and/or kV adjustment per patient size (includes targeted exams where dose is matched to clinical indication); or iterative reconstruction. COMPARISON: CT Abdomen/Pelvis Renal [id number] 09/29/2018 4:35 PM RADIATION DOSE METRICS: Total DLP (mGy-cm): 1926.6 FINDINGS: Limitations: Evaluation of solid organs and vasculature is limited without intravenous contrast. This is standard protocol for evaluation of possible urolithiasis. Lungs: Visualized lungs are clear. Pleural spaces: No pleural effusion. Heart: Visualized portions of the heart are unremarkable. Liver: The liver is unremarkable. Gallbladder and bile ducts: The gallbladder is unremarkable. No biliary ductal dilatation. Pancreas: The pancreas is unremarkable. No pancreatic ductal dilatation. Spleen: The spleen is unremarkable. Adrenal glands: The right and left adrenal glands are unremarkable. 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 3.6 mm stone at the right ureterovesicular junction with mild right hydroureteronephrosis and mild right perinephric inflammation at the lower pole moiety of the right kidney. The left kidney is unremarkable. The left ureter is unremarkable. Stomach and bowel: No obstruction. No mucosal thickening. Appendix: The appendix is visualized and is unremarkable. No findings to suggest acute appendicitis. Intraperitoneal space: No free intraperitoneal air. No ascites. No loculated fluid collections to suggest an abscess. Vasculature: Mild atherosclerotic changes in the visualized arteries. No evidence for aortic aneurysm. Incidental note of a retroaortic left renal vein. Lymph nodes: No lymphadenopathy. Urinary bladder: Unremarkable as visualized. Reproductive: Stable changes consistent with a previous hysterectomy. The ovaries are not definitely visualized, not an expected in a postmenopausal female. This may be due to ovarian atrophy. Alternatively, the patient may have had a previous bilateral oophorectomy. Findings are stable. Bones/joints: Degenerative changes in the spine and hips. Mild spinal canal stenosis at L1-L2 through L5-S1. Multilevel foraminal stenosis of varying severity in the lumbar spine. Osseous findings are stable. Soft tissues: No acute abnormality in the extra-abdominal soft tissues. CT/CT kidney stone [id number] IMPRESSION: 1. 3.6 mm stone at the right ureterovesicular junction with mild right hydroureteronephrosis and mild right perinephric inflammation at the lower pole moiety of the right kidney. 2. 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 3. Incidental/nonacute findings are listed in the report. Radiation Dose CTDIVOL = (mGy): DLP = 1926.6 (mGy-cm)
--- NOTE | 2021-04-17 21:34 | XRR_ITS ---
PROCEDURE INFORMATION: Exam: XR Chest Exam date and time: 04/17/2021 9:34 PM Age: 65 years old Clinical indication: Pain; Left-sided; Additional info: Chest pain TECHNIQUE: Imaging protocol: XR of the chest. Views: 1 view. COMPARISON: CR XR chest 2V* [id number] 04/13/2021 1:01 PM FINDINGS: Lungs: Lungs are clear bilaterally. Pleural spaces: No pleural effusion. No pneumothorax. Heart/Mediastinum: Stable moderate enlargement of the cardiac silhouette. Mediastinal contours are unremarkable. Bones/joints: Stable changes consistent with previous fusion in the cervical spine. XR/XR chest 1V portable [id number] IMPRESSION: 1. No acute cardiopulmonary process. 2. Incidental/nonacute findings are listed in the report. Radiation Dose CTDIVOL = (mGy): DLP = (mGy-cm)
[2021-04-17 22:18] LABS: Troponin 5 2HR 45.01 ng/L (0-10); Troponin 5 2HR Delta 0.01 ABS# (0-10)
[2021-04-17] MEDS: potassium chloride ER 20 mEq Tablet 40 MEQ PO (22:18)
[2021-04-17 22:46] LABS: D Dimer 2.79 ug/mIFEU (0-0.59)
[2021-04-17 22:49] LABS: Free T4 Free Thyroxine 1.22 ng/dL (0.82-1.77); Thyroid Stimulating Hormone 0.65 uIU/mL (0.27-4.20)
--- NOTE | 2021-04-17 23:25 | PM.HP ---
Providers/Chief Complaint Admitting Physician: Krista Mckeon MD Primary Care Provider: Tommy Cutler MD Chief Complaint: Heart Rate 150 Erratic\Blood Pressure Low History of Present Illness Stephanie Koroma is a 65 year old female with PMH HTN, HLD presenting with one week of fever, chills, generalized weakness. Symptoms started one week ago with fever between 103-105F, right sided flank pain one week ago which then subsided, increased frequency of micturition (has a h/o cytsocoele) over the past week. Visited her primary care provider on , underwent UA and COVID PCR. Was notified of the results yesterday of which UA was positive and covid PCR negative (results N/A). Started prescription for ciprofloxacin this morning. She had been in the ER yesterday due to tmax 103F at home along with increasing weakness to the point of needing walker for ambulation at home. UA +. urine cx prelim with GNR, leukocytosis 12-14. Discharged home with po abx. At 3:30 this afternoon, started to experience light headedness, papitatios, could not obtain pulse ox on oximeter and BP reading was low at home. Additionally her daughter, who is an CARDIOLOGY CLINICAL CONSULTANT checked in on her and dnoted irregular HR up to 150bpm. On arrival at ER noted to have A fib with RVR with HR 150s.BP 87-92 systolic[address] I requested a CT scan of the abdomen to evalute for obstructive pyelonephritis- showed 3.6mm stone in the right ureterovesicular junction with mild right hydronpehrosis and mild perinephric inflammation. VAccinated for COVID 19, completed 2 dose mrna series and booster Mar 2021. Review of Systems General: Reports: 10 or more systems reviewed and unremarkable except in HPI and below Const: Reports: fever(s), chills and body aches Eyes: Denies: change in vision, blurry vision or photophobia ENMT: Denies: throat pain, enlarged tonsils, odynophagia or nasal congestion Card: Denies: chest pain, palpitations, irregular heart rhythm, edema, swelling of feet/ankles, lightheadedness, pre-syncope, dyspnea on exertion or orthopnea Resp: Denies: dyspnea, productive cough, non-productive cough, wheezing, stridor, pain on inspiration, change in phlegm color, hemoptysis or chest congestion GI: Denies: abdominal pain, nausea, vomiting, hematemesis, coffee ground emesis, dysphagia, heartburn, diarrhea, constipation, GI cramping, change in stool character, hematochezia or melena : Denies: flank pain, difficulty voiding, dysuria, urinary frequency, urinary urgency, urinary hesitancy or hematuria Musc: Denies: neck pain, back pain, extremity pain, joint swelling, joint warmth or deformity Neuro: Denies: headache(s), numbness in extremities, weakness in extremities, sensory changes, difficulty walking, frequent falls, dizziness, vertigo, behavioral changes, Slurred speech present or seizure-like activity Psych: Denies: anxiety, depression, suicidal ideation or homicidal ideation Endo: Denies: polyuria, polydipsia, tired all the time, cold intolerance or hot flashes Rubin/Lymph: Denies: easy bruising or easy bleeding Medications/Allergies Home Medications Medication Instructions Recorded Confirmed Last Taken Type ondansetron 4 mg PO Q8H 3 Days #9 tab 04/16/21 Unknown Rx aspirin 81 mg PO DAILY 04/17/21 04/17/21 04/17/21 History atorvastatin [Lipitor] 20 mg PO DAILY 04/17/21 04/17/21 04/17/21 History calcium carbonate-vitamin D3 1 tab PO DAILY 04/17/21 04/17/21 04/17/21 History [Calcium 600 + D(3)] cetirizine [Zyrtec] 10 mg PO DAILY 04/17/21 04/17/21 04/17/21 History coenzyme Q10 200 mg PO DAILY 04/17/21 04/17/21 04/17/21 History latanoprost 1 drp OPHTHALMIC (EYE) QPM 04/17/21 04/17/21 1 Day Ago History ~04/16/21 lisinopril-hydrochlorothiazide 1 tab PO DAILY 04/17/21 04/17/21 04/17/21 History meloxicam 15 mg PO DAILY 04/17/21 04/17/21 04/17/21 History yuzzdywn-quf-FI-lycopen-lutein 1 tab PO DAILY 04/17/21 04/17/21 04/17/21 History [Centrum Silver] mv,Ca,jkj-EV-fhgocb comp #223 1 tab PO DAILY 04/17/21 04/17/21 04/17/21 History [Estroven Mood and Memory] omeprazole [Prilosec] 20 mg PO DAILY 04/17/21 04/17/21 04/17/21 History timolol 1 drp OPHTHALMIC (EYE) BID 04/17/21 04/17/21 1 Day Ago History ~04/16/21 Allergies Allergy/AdvReac Type Severity Reaction Status Date / Time No Known Allergies Allergy Verified 04/17/21 23:06 PFSH Acute PFSH: Medical History (Updated 04/17/21 @ 23:50 by Krista Mckeon MD) Hyperlipidemia Hypertension Sleep apnea night time CPAP use Surgical History (Updated 04/17/21 @ 23:41 by Krista Mckeon MD) History of bilateral knee replacement Vitals/I&O/Wt Last Vital Signs Temp 97.2 F L 04/17/21 23:08 Pulse 115 H 04/17/21 23:08 Resp 21 H 04/17/21 23:08 BP 113/56 04/17/21 23:08 Pulse Ox 94 04/17/21 23:08 04/17/21 04/17/21 04/18/21 14:59 22:59 06:59 Intake Total 1050 / 1050 Balance 1050 / 1050 Weight last 48 hrs Weight 101.333 kg Weight 98.883 kg Physical Exam Narrative: EXAM NARRATIVE: General: No acute distress, AO x3 HEENT: PERRLA, pupils bilaterally equal and reactive, pallors not present Chest: Normal vesicular breath sounds, no added sounds, equal good air entry bilaterally CVS: S1-S2 regular, no murmurs, no tachycardia, no gallops, no rubs Abdomen: Soft, nontender, no organomegaly, bowel sounds present, right side flank tenderness Neuro: No focal deficits, no facial deformity, AO x3, power 5/5 in all limbs Extremities: no edema, clubbing or cyanosis Data : 04/17/21 19:36 04/17/21 19:36 Micro: Microbiology 04/17/21 21:03 Blood Culture - Preliminary Blood SPECIMEN COLLECTED 04/17/21 21:03 Blood Culture - Preliminary Blood SPECIMEN COLLECTED A&P Assessment and plan (1) Sepsis: meets criteria by way of leukocytosis, fever, tachycardia, hypotension likely 2/[address] abdomen with obstructing stone 3.5mm with hydronephrosis, urology consult start ceftriaxone 1g iv q24h await identification of GNR on urine cx blood cx taken prior to starting abx on 04/16. repeated today Hold antihypertensives, start IVF NS with 20KCL @ 75 cc/hr Status: Acute Qualifiers: Sepsis type: sepsis due to unspecified organism Sepsis acute organ dysfunction status: without acute organ dysfunction Qualified Code(s): A41.9 - Sepsis, unspecified organism (2) Acute pyelonephritis: Status: Acute (3) Acute hypokalemia: replete potassium to keep goal potassium at 4.0 Status: Acute (4) Atrial fibrillation with RVR: new onset per patient history No past h/o A fib obtain 12 lead EKG IV hydration as above, replete K May be related to sepsis, hypokalemia, or perhaps even longer standing detected today Rate now betwen 110-115 after 2.5mg iv metoprolol Start metoprolol 12.5mg po BID, titrate based on response Monitor on telemetry . baseline and 2 hr troponin mildly elevated at 45, no significant delta at 2 hrs reports also new swelling along right ankle along with weakness B/L LE. Low suspicion for PE at this time, will obtain D dimer screen Status: Acute (5) Hydroureter: from calculus as noted above Status: Acute Attestations Medical Necessity Statement*: >2midnight admission anticipated for above defined care Coding Level of Care Code Acute Tallow Refiner for [facility] Fwd Diagnoses Sepsis A41.9 Sepsis type: sepsis due to unspecified organism Sepsis acute organ dysfunction status: without acute organ dysfunction Acute pyelonephritis N10 Acute hypokalemia E87.6 Atrial fibrillation with RVR I48.91 Hydroureter N13.4
--- NOTE | 2021-04-17 23:26 | PC.NURSE ---
Addendum entered by Genia Landeros RN 04/17/21 23:34: Patient was in ED yesterday and came back to ED today. Original Note: Patient states she was prescribed Cipro for a UTI by her primary. Patient states she was prescribed Keflex in the ED. Patient states she was unable to fill the Keflex until this afternoon and she did not get to take a dose yet. Patient states she took one pill of Cipro. Dose of Cipro is unknown. Patient states she had knee surgery on left knee in November and right knee in March. Both knees have scars, but no open wounds. Patient states she had an allergic rash from the dressing on the right knee, but cannot remember what material it was. Patient states she has been taking Tylenol every three hours at home for pain in her knees. Patient states she took one dose of her Tramadol recently that was prescribed to her after her knee surgery because her pain was so bad.
[2021-04-17 23:40] LABS: SARS Covid-2 Antigen Negative (Negative)
--- NOTE | 2021-04-17 23:49 | ECG_ITS ---
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 Measurements Intervals [place] Rate: 131 P: ND: QRS: 25 QRSD: 92 T: 22 QT: 328 QTc: 485 Interpretive Statements ATRIAL FIBRILLATION WITH RAPID VENTRICULAR RESPONSE LOW QRS VOLTAGE [QRS DEFLECTION < 0.5/1.0 mV IN LIMB/CHEST LEADS] No previous ECG available for comparison Electronically Signed On 04-18-2021 22:01:12 HAND SCUDDER by Sejal East M.D. [id number]
[2021-04-18] VITALS (60 sets, daily range): BP systolic 83–126; BP diastolic 52–80; PULSE 84–135; RESP 14–28; TEMP 36.3–37.7; O2SAT 91–98
--- NOTE | 2021-04-18 | SCC_ITS ---
Procedure Done: 1. Cystoscopy, right retrograde ureterogram 2. Right ureteroscopy with stone manipulation 3. Right ureteral stent placement (7 [place] by 28 cm double-pigtail without string) 33.3 seconds of fluoroscopic guidance, for a cumulative dose of 13.59 mGy, was provided to Dr. Lezama by the radiology department. C-arm images of the abdomen were saved for the patient's permanent record. [facility]
--- NOTE | 2021-04-18 00:18 | PC.NURSE ---
Addendum entered by Genia Landeros RN 04/18/21 00:30: Dr. Mckeon notified of patient asking for a mild sleeping pill, stating that she takes Melatonin at home. Patient states that she wears a CPAP and home at night, but does not have hers with her. Patient is asking for a CPAP here. Dr. Mckeon notified. Original Note: Dr. Mckeon notified of patient's heart rate A-fib 120s-130s. Patient is asymptomatic.
[2021-04-18] MEDS: sodium chlor 0.9% + KCl 20 mEq 20 MEQ/1,000 ML BAG 75 MEQ IV (00:39)
[2021-04-18] MEDS: metoprolol tartrate 25 mg Tablet 12.5 MG PO ×2 (00:39→20:00)
[2021-04-18] MEDS: ALPRAZolam 0.5 mg Tablet 0.25 MG PO (01:18)
[2021-04-18 02:30] LABS: Basophils % 0.4 %; Eosinophils # 0.1 10^3/uL (0.0-0.8); Eosinophils % 0.5 %; Hematocrit 37.1 % (37.0-47.0); Hemoglobin 12.2 g/dL (11.5-15.3); Lymphocytes # 0.9 10^3/uL (0.8-4.8); Lymphocytes % 8.3 %; Mean Corpuscular HGB Conc 32.9 g/dL (30.0-36.0); Mean Corpuscular Hemoglobin 29.5 pg (28.0-34.0); Mean Corpuscular Volume 89.8 fl (81-99); Mean Platelet Volume 11.2 fL (7.4-10.4); Monocytes # 1.1 10^3/uL (0.2-0.9); Neutrophils # 8.88 10^3/uL (1.8-7.7); Neutrophils % 80.4 %; Nucleated Red Blood Cells % 0 %; Platelet Count 181 10^3/cmm (130-400); Red Blood Count 4.13 10^6/uL (4.1-5.3); Red Cell Distribution Width 13.6 % (12.1-15.1); White Blood Count 11.1 10^3/uL (4.0-10.0)
[2021-04-18 02:54] LABS: Troponin 5 6HR 41.76 ng/L (0-10)
[2021-04-18 03:02] LABS: Alanine Aminotransferase 39 U/L (0-33); Albumin Level 2.8 g/dL (3.5-5.2); Alkaline Phosphatase 196 IU/L (35-105); Anion Gap 18.5 (5-19); Aspartate Amino Transferase 45 U/L (0-32); Blood Urea Nitrogen 27 mg/dL (8-23); Carbon Dioxide 20 mmol/L (22-29); Chloride 96 mmol/L (98-107); Creatinine Clr Calc Pharmacy 77.5952; Globulin 2.9 g/dL (1.3-4.6); Glomerular Filtration Rate 62.8 mL/min (90-130); Glucose 110 mg/dL (65-115); Osmolality Calculated 278 mOsm/kg (285-295); Potassium 3.5 mmol/L (3.5-5.1); Sodium 131 mmol/L (136-145); Total Bilirubin 0.9 mg/dL (0.15-1.2); Total Protein 5.7 g/dL (6.6-8.7); Troponin 5 6HR Delta -3.24 ng/L (0-12)
[2021-04-18] MEDS: metoprolol tartrate 1 mg/1 mL SDV 5 mL 2.5 MG IVP (04:27)
[2021-04-18] MEDS: enoxaparin 40 mg/0.4 mL Syringe SUBCUT (04:27)
--- NOTE | 2021-04-18 04:37 | PM.CONSULT ---
Providers/Reason For Consult Consulting Physician/Specialty*: Lezama Reason for Consult*: Right obstructive pyelonephritis, right distal ureteral stone Attending Physician: Krista Mckeon MD Primary Care Provider: Tommy Cutler MD History of Present Illness History of Present Illness Stephanie Koroma is a 65 year old female admittted for pyelonephritis complicated by RIGHT DISTAL URETERAL STONE with mild obstruction. Cultures + with final pending from 04/16/21. Hemodynamically stable. + A-fib with RVR. Began with renal colicky type symptoms 1 week ago. Symptoms persisted for about a day and then resolved. The following day she started developing fever and chills. Temperature greater than 102 measured. No respiratory symptoms at the time but did have abdominal pain nausea and vomiting intermittently. Was placed on antibiotics by primary care. Continued to worsen and was seen in the emergency department treated for pyelonephritis. No imaging was done at that time. ER visit last night included a CT scan that showed the findings reviewed here. Clinical picture worsened with weakness, malaise while taking antibiotics. CT scan reviewed. 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 The lower pole moiety is mildly dilated. She is clinically not septic looking but is a high risk for that given her symptoms worsening on antibiotics and the persistence of stone on CT scan with presence of least 1 week. Will plan for cysto, stent possible stone treatment this am. I reviewed the procedure in detail with the patient. Discussed the primary goal of stent placement but if everything is going well to consider attempt at stone retrieval to avoid another surgery in the near future. That would be a secondary priority though given the concern regarding obstructive pyelonephritis with progressive infectious picture via manipulation. Review of Systems Const: Reports: fever(s), chills and malaise Eyes: Denies: change in vision ENMT: Denies: hoarseness Card: Reports: palpitations and irregular heart rhythm; Denies: chest pain Resp: Reports: dyspnea; Denies: productive cough or wheezing GI: Reports: abdominal pain, nausea and vomiting : Reports: flank pain; Denies: oliguria Musc: Reports: back pain; Denies: joint warmth Skin/Breast: Denies: rash Neuro: Denies: confusion, behavioral changes or Slurred speech present Psych: Denies: anxiety, memory loss or difficulty concentrating Endo: Denies: flushing Rubin/Lymph: Denies: easy bruising or easy bleeding All/Imm: Denies: urticaria or acute wheezing Meds/Allergies Home Medications and Allergies Home Medications Medication Instructions Recorded Confirmed Last Taken Type ondansetron 4 mg PO Q8H 3 Days #9 tab 04/16/21 04/17/21 04/17/21 Rx aspirin 81 mg PO DAILY 04/17/21 04/17/21 04/17/21 History atorvastatin [Lipitor] 20 mg PO DAILY 04/17/21 04/17/21 04/17/21 History calcium carbonate-vitamin D3 1 tab PO DAILY 04/17/21 04/17/21 04/17/21 History [Calcium 600 + D(3)] cetirizine [Zyrtec] 10 mg PO DAILY 04/17/21 04/17/21 04/17/21 History coenzyme Q10 200 mg PO DAILY 04/17/21 04/17/21 04/17/21 History latanoprost 1 drp OPHTHALMIC (EYE) QPM 04/17/21 04/17/21 1 Day Ago History ~04/16/21 lisinopril-hydrochlorothiazide 1 tab PO DAILY 04/17/21 04/17/21 04/17/21 History meloxicam 15 mg PO DAILY 04/17/21 04/17/21 04/17/21 History idkwdwio-kyc-BI-lycopen-lutein 1 tab PO DAILY 04/17/21 04/17/21 04/17/21 History [Centrum Silver] mv,Ca,tfr-QO-zotddb comp #223 1 tab PO DAILY 04/17/21 04/17/21 04/17/21 History [Estroven Mood and Memory] omeprazole [Prilosec] 20 mg PO DAILY 04/17/21 04/17/21 04/17/21 History timolol 1 drp OPHTHALMIC (EYE) BID 04/17/21 04/17/21 1 Day Ago History ~04/16/21 melatonin 3 mg PO BEDTIME 04/18/21 04/18/21 1 Day Ago History ~04/17/21 Allergies Allergy/AdvReac Type Severity Reaction Status Date / Time No Known Allergies Allergy Verified 04/17/21 23:06 Current Medications Current Medications Generic Name Dose Route Start Last Admin Trade Name Freq PRN Reason Stop Dose Admin Alprazolam 0.25 mg 04/18/21 00:57 04/18/21 01:18 Alprazolam 0.5 Mg Tablet PO 0.25 mg BEDTIME PRN Administration sleep Enoxaparin Sodium 40 mg 04/18/21 05:00 04/18/21 04:27 Enoxaparin 40 Mg/0.4 Ml Syringe SUBCUT 40 mg Q24H SO Administration Potassium Chloride/Sodium Chloride 20 meq in 1,000 mls @ 75 mls/hr 04/17/21 23:45 04/18/21 00:39 Sodium Chlor 0.9% + Kcl 20 Meq IV 75 mls/hr .[id number] SO Administration Metoprolol Tartrate 12.5 mg 04/17/21 23:55 04/18/21 00:39 Metoprolol Tartrate 25 Mg Tablet PO 12.5 mg BID@0900,2100 SO Administration Metoprolol Tartrate 2.5 mg 04/18/21 00:23 04/18/21 04:27 Metoprolol Tartrate 1 Mg/1 Ml Sdv 5 Ml IVP 2.5 mg Q4H PRN Administration hr >120 PFSH Acute PFSH: Medical History Hyperlipidemia Hypertension Sleep apnea night time CPAP use Surgical History History of bilateral knee replacement Vitals/I&O/Wt Last Vital Signs Temp 97.4 F L 04/18/21 04:00 Pulse 119 H 04/18/21 04:00 Resp 22 H 04/18/21 04:00 BP 101/70 04/18/21 04:00 Pulse Ox 93 04/18/21 04:00 04/17/21 04/17/21 04/18/21 14:59 22:59 06:59 Intake Total 1050 / 1050 Balance 1050 / 1050 Weight last 48 hrs Weight 223 lb 6.4 oz Weight 218 lb Physical Exam Const: COMMON NORMALS: no acute distress, alert and well nourished GENERAL APPEARANCE: well kempt and well developed ORIENTATION/CONSCIOUSNESS: not confused HENMT: COMMON NORMALS: normocephalic and atraumatic HEAD & SCALP: normocephalic and atraumatic Eye: COMMON NORMALS: conjunctivae normal and no scleral icterus CONJUNCTIVA: Yes conjunctivae normal Neck/C-Spine: COMMON NORMALS: full ROM GENERAL: Yes normal visual inspection Lymph: LYMPHATIC: no lymphadenopathy noted and no lymphedema noted Resp: COMMON NORMALS: normal respiratory effort and clear to auscultation bilaterally EFFORT & INSPECTION: No labored and No Actively coughing AUSCULTATION: clear to auscultation bilaterally Cardio: COMMON NORMALS: regular rate, regular rhythm and No murmurs present (Cardio) RATE: regular rate RHYTHM: regular rhythm BRUITS: no carotid bruits GI: COMMON NORMALS: Soft to palpation and no masses PALPATION: Yes Soft to palpation and Yes Tenderness to palpation present (GI) Details: RLQ and RUQ : COMMON NORMALS: Yes normal external appearance BLADDER/KIDNEY EXAM: No catheter in place and Yes CVA tenderness Back/Pelvis: GENERAL BACK: Yes CVA tenderness CVA tenderness: right Extremity: COMMON NORMALS: no clubbing, cyanosis or edema Neuro: COMMON NORMALS: no focal motor deficits SENSORIUM/ORIENTATION: Yes alert Psych: COMMON NORMALS: mental status grossly normal APPEARANCE: Yes grossly normal and Yes well kempt ATTITUDE: Yes calm and Yes engaged Skin: COMMON NORMALS: no rashes or lesions noted and no jaundice GENERAL SKIN EXAM: no rashes or lesions noted Data Micro: Micro: Microbiology 04/17/21 21:03 Blood Culture - Pr eliminary Blood SPECIMEN [facility] 04/17/21 21:03 Blood Culture - Pr eliminary Blood SPECIMEN [facility] A&P Assessment and plan (1) Right distal ureteral calculus: around 4 mm ? in duplicated system (lower pole moiety) Status: Acute (2) Obstructive pyelonephritis: worsened on Antibiotics Status: Acute (3) Atrial fibrillation with RVR: New onset although she states that she has had notable irregular rhythm at times in the past. Status: Acute (4) Acute hypokalemia: Status: Acute Consult Attestations Medical Necessity Statement: see attending Recommended surgery for at least draining her right collecting system. 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
--- NOTE | 2021-04-18 06:01 | PM.OP ---
Operative Report Date of procedure: April 18, 2021 Pre-op Diagnosis: Pre-op Diagnosis: 1. Obstructive pyelonephritis with right distal ureteral stone Procedure Done: 1. Cystoscopy, right retrograde ureterogram 2. Right ureteroscopy with stone manipulation 3. 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 She had had increasing infectious picture over the last several days with fever chills malaise weakness while taking antibiotics. While the stone was located at the distal ureter her first symptoms related to renal colic occurred about a week ago. Because of her progressive symptoms it was decided to take her to the operating room emergently this morning for at least stent placement but if everything was going perfectly well then consider stone intervention under the same anesthesia to avoid a second procedure. Procedure: After urgent evaluation examination and obtaining of informed consent she was taken to the operating suite on 04/18/2021 where general anesthesia was administered without difficulty after appropriate timeout was performed, SCDs confirmed to be functioning, preoperative antibiotics administered, beta-jayleen protocol confirmed. Prepped and draped in the usual sterile fashion in dorsolithotomy position paying careful attention to avoiding pressure points. 21 [place] cystoscope with 30 degree lens was introduced to the urethral meatus and advanced into the bladder under videoscopy. Bladder was systematically examined. No stones were seen. She was seen to have a completely duplicated ureters. Because of the location of the dilation of the renal pelvis being in the lower pole moiety it was decided to perform a confirmatory ureterogram and an 8 [place] cone-tip catheter was intubated into the right superior ureteral orifice. A small amount of contrast was injected just to fill the distal ureter. It appeared that there was a filling defect but was not completely identified. There was no severe hydronephrosis. A little bit of contrast was also injected into the lower pole ureter which appeared to be less dilated. To confirm a 7.5 [place] offset semirigid ureteroscope was advanced into the distal aspect of the ureter to the upper pole moiety and the stone was encountered just inside the intramural tunnel. Conversation was had with anesthesia and was felt that her blood pressure was stable and she was clinically doing okay. For that reason it was decided to retrieve the stone. I did not appear that she would require fragmentation but dilation was required. Flexible tip guidewire was advanced up the right ureter to the upper pole moiety distal ureter then dilated with a 15 [place] 4 cm balloon with minimal pressure. The flexible ureteroscope was advanced next to the guidewire and the stone was extracted with grasping forceps without difficulty. Final inspection revealed no residual stone fragments Focus was paid during the entire procedure to avoid high-pressure distention of the right collecting system. Cystoscope was then backloaded over the guidewire and a 7 [place] by 28 cm double-pigtail stent was advanced without difficulty into appropriate position as confirmed via fluoroscopy and cystoscopy. Procedure was completed. She tolerated the procedure well without complications. She remained hemodynamically stable throughout. Was awakened in the operating room and returned to PACU in stable condition. PLANS: 1. Will require continued inpatient stay for IV antibiotics 2. Will plan on removing the stent after full recovery from infection
--- NOTE | 2021-04-18 06:13 | PC.NURSE ---
Patient left to surgery with AZAEL Mckinney.
--- NOTE | 2021-04-18 06:20 | ANES.PREANE2 ---
Documented by User: Janie Douglas CRNA 04/18/21 07:04 Pre-Anesthetic Assessment Pre-Anesthetic Assessment: Height/Weight: Height 1.73 m Weight 101.333 kg Temp Pulse Resp BP Pulse Ox 97.4 F L 113 H 22 H 101/70 93 04/18/21 04:00 04/18/21 05:31 04/18/21 04:00 04/18/21 04:00 04/18/21 04:00 Preop Diagnosis: Proposed Procedure: Operation Date: 04/18/21 06:35 Proposed Procedures p Cystoscopy/ c Stent placement(Not Applicable) - Ney Lezama MD Was Beta Tej taken within 24 hours: N/A Was Clonidine taken within 24 hours: N/A Last intake: yesterday at noon Last Intake: 12:00 Social: Social History: No alcohol and No tobacco Exam: Pre-Anes Outpt Exam: alert and oriented x 3 Airway: Submandibular: WNL Cervical ROM: WNL MP: 2 Dentition: Full History/ROS: No significant history except as noted Pulmonary: Pulmonary: Sleep apnea (CPAP) and SOB CV/HEM: CV/HEM: HTN : : None reported Hepatic: Hepatic: None reported GI: GI: GERD (controlled) Metabolic: Metabolic: Morbid obesity Musc/skel: Musc/skel: None reported Neuropsych: Neuropsych: None reported Anesthetic Plan: ASA status: 3 Anesthesia: Anesthesia Evaluation and General Risk of > 500 ml blood loss (7ml/kg in children): No Meds/Allergies Current Medications: Current Medications Generic Name Dose Route Start Last Admin Trade Name Freq PRN Reason Stop Dose Admin Alprazolam 0.25 mg 04/18/21 00:57 04/18/21 01:18 Alprazolam 0.5 M g Tablet PO 0.25 mg BEDTIME PRN Administration sleep Enoxaparin Sodium 40 mg 04/18/21 05:00 04/18/21 04:27 Enoxaparin 40 Mg /0.4 Ml Syringe SUBCUT 40 mg Q24H SO Administration Potassium Chloride /Sodium Chloride 20 meq in 1,000 m ls @ 75 mls/hr 04/17/21 23:45 04/18/21 06:14 Sodium Chlor 0.9 % + Kcl 20 Meq IV 0 mls/hr .[id number] SO Infusion Metoprolol Tartrat e 12.5 mg 04/17/21 23:55 04/18/21 00:39 Metoprolol Tartr ate 25 Mg Tablet PO 12.5 mg BID@0900,2100 SO Administration Metoprolol Tartrat e 2.5 mg 04/18/21 00:23 04/18/21 04:27 Metoprolol Tartr ate 1 Mg/1 Ml Sdv 5 Ml IVP 2.5 mg Q4H PRN Administration hr >120 PFSH Anesthesia PFSH: Medical History Hyperlipidemia Hypertension Sleep apnea night time CPAP use Surgical History History of bilateral knee replacement Data Anesthesia CBC & Chem 7: 04/18/21 01:36 04/18/21 01:36 Other Labs: Laboratory Results - last 48 hr 04/17/21 04/17/21 04/17/21 19:36 19:36 19:36 WBC 12.9 H RBC 3.93 L Hgb 11.7 Hct 33.3 L MCV 84.7 MCH 29.8 MCHC 35.1 RDW 13.2 Plt Count 202 MPV 10.7 H Neut % (Auto) 79.9 Lymph % (Auto) 9.3 [place] % (Auto) 9.3 Eos % (Auto) 0.5 Baso % (Auto) 0.5 Neut # (Auto) 10.28 H Lymph # (Auto) 1.2 [place] # (Auto) 1.2 H Eos # (Auto) 0.1 Baso # (Auto) 0.1 Nucleated RBC % (auto) 0 Nucleated RBCs # 0.0 D-Dimer Sodium 130 L Potassium 3.1 L Chloride 94 L Carbon Dioxide 24 Anion Gap 15.1 BUN 31 H Creatinine 1.0 H GFR Calculation 55.6 L Glucose 135 H Calculated Osmolality 279 L Calcium 8.2 L Magnesium 2.2 Total Bilirubin 1.2 AST 57 H ALT 46 H Alkaline Phosphatase 221 H Troponin T Baseline 45 H Troponin T 120 Minute Delta Troponin T Troponin T Hi Sens 6Hr Troponin T Hi Sens 6Hr Delta Total Protein 5.8 L Albumin 3.0 L Globulin 2.8 TSH 0.65 Free T4 Urine Color Urine Appearance Urine pH Ur Specific [place] Urine Protein Urine Glucose (UA) Urine Ketones Urine Blood Urine Nitrate Urine Bilirubin Urine Urobilinogen Ur Leukocyte Esterase Urine RBC Urine WBC Ur Squamous Epith Cells Amorphous Sediment Urine Bacteria Urine Opiates Screen Ur Barbiturates Screen Ur Phencyclidine Scrn Ur Amphetamines Screen U Benzodiazepines Scrn Urine Cocaine Screen U Marijuana (THC) Screen SARS-CoV-2 Ag (Rapid) 04/17/21 04/17/21 04/17/21 19:36 19:36 20:18 WBC RBC Hgb Hct MCV MCH MCHC RDW Plt Count MPV Neut % (Auto) Lymph % (Auto) [place] % (Auto) Eos % (Auto) Baso % (Auto) Neut # (Auto) Lymph # (Auto) [place] # (Auto) Eos # (Auto) Baso # (Auto) Nucleated RBC % (auto) Nucleated RBCs # D-Dimer 2.79 H Sodium Potassium Chloride Carbon Dioxide Anion Gap BUN Creatinine GFR Calculation Glucose Calculated Osmolality Calcium Magnesium Total Bilirubin AST ALT Alkaline Phosphatase Troponin T Baseline Troponin T 120 Minute Delta Troponin T Troponin T Hi Sens 6Hr Troponin T Hi Sens 6Hr Delta Total Protein Albumin Globulin TSH 0.65 Free T4 1.22 Urine Color Yellow Urine Appearance Clear Urine pH 5 Ur Specific [place] 1.005 Urine Protein Trace Urine Glucose (UA) Norm Urine Ketones Negative Urine Blood 3+ H Urine Nitrate Negative Urine Bilirubin Neg Urine Urobilinogen 4 H Ur Leukocyte Esterase 1+ H Urine RBC 0-4 H Urine WBC 10-15 H Ur Squamous Epith Cells 0-4 H Amorphous Sediment Not Reportable Urine Bacteria 2+ H Urine Opiates Screen Ur Barbiturates Screen Ur Phencyclidine Scrn Ur Amphetamines Screen U Benzodiazepines Scrn Urine Cocaine Screen U Marijuana (THC) Screen SARS-CoV-2 Ag (Rapid) 04/17/21 04/17/21 04/17/21 20:18 21:39 22:34 WBC RBC Hgb Hct MCV MCH MCHC RDW Plt Count MPV Neut % (Auto) Lymph % (Auto) [place] % (Auto) Eos % (Auto) Baso % (Auto) Neut # (Auto) Lymph # (Auto) [place] # (Auto) Eos # (Auto) Baso # (Auto) Nucleated RBC % (auto) Nucleated RBCs # D-Dimer Sodium Potassium Chloride Carbon Dioxide Anion Gap BUN Creatinine GFR Calculation Glucose Calculated Osmolality Calcium Magnesium Total Bilirubin AST ALT Alkaline Phosphatase Troponin T Baseline Troponin T 120 Minute 45.01 H Delta Troponin T 0.01 Troponin T Hi Sens 6Hr Troponin T Hi Sens 6Hr Delta Total Protein Albumin Globulin TSH Free T4 Urine Color Urine Appearance Urine pH Ur Specific [place] Urine Protein Urine Glucose (UA) Urine Ketones Urine Blood Urine Nitrate Urine Bilirubin Urine Urobilinogen Ur Leukocyte Esterase Urine RBC Urine WBC Ur Squamous Epith Cells Amorphous Sediment Urine Bacteria Urine Opiates Screen Negative Ur Barbiturates Screen Negative Ur Phencyclidine Scrn Negative Ur Amphetamines Screen Negative U Benzodiazepines Scrn Negative Urine Cocaine Screen Negative U Marijuana (THC) Screen Negative SARS-CoV-2 Ag (Rapid) Negative 04/18/21 04/18/21 04/18/21 01:36 01:36 01:36 WBC 11.1 H RBC 4.13 Hgb 12.2 Hct 37.1 MCV 89.8 D MCH 29.5 MCHC 32.9 D RDW 13.6 Plt Count 181 MPV 11.2 H Neut % (Auto) 80.4 Lymph % (Auto) 8.3 [place] % (Auto) 10.0 Eos % (Auto) 0.5 Baso % (Auto) 0.4 Neut # (Auto) 8.88 H Lymph # (Auto) 0.9 [place] # (Auto) 1.1 H Eos # (Auto) 0.1 Baso # (Auto) 0.0 Nucleated RBC % (auto) 0 Nucleated RBCs # 0.0 D-Dimer Sodium 131 L Potassium 3.5 Chloride 96 L Carbon Dioxide 20 L Anion Gap 18.5 BUN 27 H Creatinine 0.9 GFR Calculation 62.8 L Glucose 110 Calculated Osmolality 278 L Calcium 8.0 L Magnesium Total Bilirubin 0.9 AST 45 H ALT 39 H Alkaline Phosphatase 196 H Troponin T Baseline Troponin T 120 Minute Delta Troponin T Troponin T Hi Sens 6Hr 41.76 H Troponin T Hi Sens 6Hr Delta -3.24 L Total Protein 5.7 L Albumin 2.8 L Globulin 2.9 TSH Free T4 Urine Color Urine Appearance Urine pH Ur Specific [place] Urine Protein Urine Glucose (UA) Urine Ketones Urine Blood Urine Nitrate Urine Bilirubin Urine Urobilinogen Ur Leukocyte Esterase Urine RBC Urine WBC Ur Squamous Epith Cells Amorphous Sediment Urine Bacteria Urine Opiates Screen Ur Barbiturates Screen Ur Phencyclidine Scrn Ur Amphetamines Screen U Benzodiazepines Scrn Urine Cocaine Screen U Marijuana (THC) Screen SARS-CoV-2 Ag (Rapid) Micro: Microbiology 04/17/21 21:03 Blood Culture - Preliminary Blood SPECIMEN COLLECTED 04/17/21 21:03 Blood Culture - Preliminary Blood SPECIMEN COLLECTED Cardiac Studies: No Data to Display Documented by User: Jesu Bowen 04/18/21 08:04 PFSH Anesthesia PFSH: Medical History Hyperlipidemia Hypertension Sleep apnea night time CPAP use Surgical History History of bilateral knee replacement Data Anesthesia CBC & Chem 7: 04/18/21 01:36 04/18/21 01:36 Cardiac Studies: No Data to Display
--- NOTE | 2021-04-18 06:29 | SC_ITS ---
WS: [id number] INTRAOPERATIVE TECHNIQUE: 4 Spot fluoroscopic images for intraoperative purposes. FLUOROSCOPY TIME: 33.3 seconds CLINICAL INFORMATION: Surgical procedure COMPARISON: None. FINDINGS: Right ureteroscopy with contrast injection. Double-J stent deployment. SC/C-arm FL for Urology IMPRESSION: Images obtained for intraoperative purposes.
[2021-04-18] MEDS: iohexol 300 mg/mL 50 mL Btl (OR ONLY) XX (06:55)
--- NOTE | 2021-04-18 08:00 | PC.NURSE ---
Pt returned from surgery at 0745. Pt had no s/s of pain or discomfort at the present time. Pt now lying in bed resting and talking to staff. No needs voiced. Call light in reach.
--- NOTE | 2021-04-18 08:04 | ANE.PACU2 ---
Inpatient post-anesthesia follow up: Airway intact: Yes Vital signs: Temperature 99.6 F Pulse Rate 104 Respiratory Rate 19 Blood Pressure 112/62 Pulse Oximetry 91 Oxygen Delivery Me thod Nasal Cannula Oxygen Flow Rate 2 Fraction of Inspir ed Oxygen 21 Hydration adequate: Yes Nausea and vomiting: No Pain level: 2 Mental status: Baseline
[2021-04-18 09:11] LABS: Glucose Point of Care 110 mg/dL (70-110)
--- NOTE | 2021-04-18 10:32 | PM.PN ---
Subjective Subjective: Interval history: Status post ureteral stent with extraction of the stone Patient is doing fine no active fever chills hemodynamically stable She is septic IV antibiotics, urine culture positive for gram-negative carolann, Vitals/I&O/Wt Last Vital Signs Temp 99.2 F 04/18/21 07:50 Pulse 100 04/18/21 07:50 Resp 25 H 04/18/21 07:50 BP 110/53 04/18/21 07:50 Pulse Ox 95 04/18/21 07:50 04/17/21 04/18/21 04/18/21 22:59 06:59 14:59 Intake Total 1050 / 1050 418.75 / 1468.75 0 / 0 Output Total 0 / 0 Balance 1050 / 1050 418.75 / 1468.75 0 / 0 Weight last 48 hrs Weight 101.333 kg Weight 98.883 kg Physical Exam Narrative: EXAM NARRATIVE: Patient laying supine no active complaint S1, S2 variable Abdomen soft EOMI, PERRLA Nonfocal neuro exam No audible stridor or wheezing Appropriate mood and affect No distress Data : 04/18/21 01:36 04/18/21 01:36 Micro: Microbiology 04/17/21 21:03 Blood Culture - Preliminary Blood SPECIMEN COLLECTED 04/17/21 21:03 Blood Culture - Preliminary Blood SPECIMEN COLLECTED A&P Assessment and plan (1) Obstructive pyelonephritis: Status: Acute (2) Right distal ureteral calculus: Status: Acute (3) Sepsis: Status: Acute Qualifiers: Sepsis type: sepsis due to unspecified organism Sepsis acute organ dysfunction status: without acute organ dysfunction Qualified Code(s): A41.9 - Sepsis, unspecified organism (4) Acute pyelonephritis: Status: Acute (5) Acute hypokalemia: Status: Acute (6) Atrial fibrillation with RVR: Status: Acute Additional A&P Information Sepsis secondary to right distal ureteral calculus Continue IV antibiotics, Urine culture growing gram-negative rods She is afebrile Hemodynamically stable Status post ureteral stent with extraction of stone postop day 0 New onset A. fib Patient not in RVR Continue metoprolol for now Likely related to sepsis and hyperkalemia Start anticoagulation for now High D-dimer, will request CTA to rule out PE which can also cause new onset A. fib TSH is normal, magnesium 2.2, Hypokalemia: Repleted Obstructive sleep apnea: Auto CPAP at night Cardiac diet DVT prophylaxis start, full dose Lovenox 6-8 hours after the procedure Full code Attestations Medical Necessity Statement*: Continue medical management, will discharge after blood culture and urine culture results Time Spent in Patient Care: less than 15 minutes Coding Level of Care Code Acute Batch Records Clerk for [facility] Fwd Diagnoses Obstructive pyelonephritis N11.1 Right distal ureteral calculus N20.1 Sepsis A41.9 Sepsis type: sepsis due to unspecified organism Sepsis acute organ dysfunction status: without acute organ dysfunction Acute pyelonephritis N10 Acute hypokalemia E87.6 Atrial fibrillation with RVR I48.91
--- NOTE | 2021-04-18 10:41 | CT_ITS ---
WS: [id number] CTA OF THE CHEST WITH PULMONARY EMBOLISM PROTOCOL TECHNIQUE: High-resolution contrast enhanced CTA of the chest with coronal and sagittal reformatted i yos with pulmonary embolism protocol. MIP images are also reviewed. CLINICAL INFORMATION: PE, new onset fib COMPARISON: None. DLP: 575.[address] scans at [facility] use at least one of these dose optimization techniques: automated e xposure control; mA and/or kV adjustment per patient size (includes targeted exams where dose is matc hed to clinical indication); or iterative reconstruction. FINDINGS: Lungs are well aerated. No acute pulmonary infiltrates. No focal pneumonia or pleural fluid. Distal m ain pulmonary arteries are normal. Segmental and subsegmental pulmonary arteries are patent. No evide nce of pulmonary embolus. Postoperative changes lower cervical spine. No mediastinal or hilar lymphadenopathy. No axillary lymp hadenopathy. Normal GE junction. Adrenal glands are normal. CT/CT angio chest PE protcl [id number] IMPRESSION: 1. Proximal main pulmonary arteries are normal. No evidence of pulmonary embol us. 2. Lungs are well aerated. No acute pulmonary infiltrates.
[2021-04-18] MEDS: potassium chloride ER 20 mEq Tablet 40 MEQ PO (11:22)
[2021-04-18] MEDS: enoxaparin 100 mg/mL Syringe SUBCUT ×2 (11:22→22:54)
[2021-04-18] MEDS: cefTRIAXone 2,000 MG in sodium chloride 0.9% (plus) 50 ML 100 MG IV (11:23)
[2021-04-18 16:10] LABS: Coronavirus Test Green County Not Detected
[2021-04-18] MEDS: metoprolol tartrate 25 mg Tablet PO (20:04)
--- NOTE | 2021-04-18 23:50 | USCV_ITS ---
Stephanie Koroma Age: 65 Gender: F : 1955 Exam Date: 04/18/2021 13:17 Ordering Phys: Krista Mckeon MD Technologist: GUILHERME [place] [facility] [place] NEW ONSET AFIB BP: 115 / 55 HR: 87 Rhythm: Sinus Technical Quality: Adequate MEASUREMENTS (Male / Female) Normal Values 2D ECHO LV Diastolic Diameter PLAX 5.0 cm 4.2 - 5.9 / 3.9 - 5.3 cm LV Systolic Diameter PLAX 3.0 cm IVS Diastolic Thickness 1.4 cm 0.6 - 1.0 / 0.6 - 0.9 cm IVS Systolic Thickness 2.0 cm LVPW Diastolic Thickness 1.4 cm 0.6 - 1.0 / 0.6 - 0.9 cm LVPW Systolic Thickness 2.0 cm LVOT Diameter 2.0 cm LV Ejection Fraction 2D Teich 72.0 % LV Ejection Fraction MOD 2C 70.9 % LV Ejection Fraction 2C AL 71.5 % LA Diameter 4.3 cm LA Width 2.4 cm LA Height 4.3 cm RA Width 3.2 cm RA Height 4.4 cm Aorta at Sinotubular Diameter 2.5 cm DOPPLER AV Peak Velocity 131.0 cm/s LVOT Peak Velocity 105.0 cm/s AV Area Cont Eq vti 2.6 cm squared AV Area Cont Eq pk 2.5 cm squared MV Area PHT 5.5 cm squared Mitral E to A Ratio 0.8 MV E' Velocity 43.5 cm/s Mitral E to MV E' Ratio 6.3 Mitral E to LV E' Lateral Ratio 6.5 Mitral E to LV E' Septal Ratio 6.2 TR Peak Velocity 248.7 cm/s TR Peak Gradient 24.7 mmHg TV Peak E Velocity 60.0 cm/s Right Atrial Pressure 3.0 mmHg Pulmonary Artery Systolic Pressu 27.7 mmHg PV Peak Velocity 84.0 cm/s RV Acceleration Time 0.2 s RV Ejection Time 0.3 s RV AcT/ET 0.5 FINDINGS Left Ventricle Normal left ventricular size and systolic function, EF 70 %. No regional wall motion abnormalities. Mild left ventricular hypertrophy. Grade I/IV diastolic dysfunction (abnormal relaxation filling pattern), normal to mildly elevated filling pressures. Right Ventricle The right ventricle is normal in size and function. Right Atrium The right atrium is normal in size. Left Atrium Mildly increased left atrial size. Mitral Valve No gross abnormalities noted Aortic Valve No gross abnormalities noted. Tricuspid Valve Trace tricuspid valve regurgitation. Estimated pulmonary artery peak systolic pressure 28 mmHg Pulmonic Valve No pulmonic regurgitation. Pericardium Trivial pericardial effusion. Aorta Normal ascending aorta dimension. CONCLUSIONS Normal left ventricular size and systolic function, EF 70 %. No regional wall motion abnormalities. Mild left ventricular hypertrophy. Grade I/IV diastolic dysfunction (abnormal relaxation filling pattern), normal to mildly elevated filling pressures. Mildly increased left atrial size. Trace tricuspid valve regurgitation. Estimated pulmonary artery peak systolic pressure 28 mmHg Trivial pericardial effusion. There are no intracardiac masses. No previous study is available for comparison. Dr Sejal East MD FACC (Electronically Signed) Final Date: 18 April 2021 21:01 S
[2021-04-19] VITALS (11 sets, daily range): BP systolic 118–148; BP diastolic 65–83; PULSE 77–90; RESP 15–85; TEMP 36.3–36.9; O2SAT 95–97
[2021-04-19 02:54] LABS: Basophils # 0.1 10^3/uL (0.0-0.1); Basophils % 0.4 %; Hematocrit 35.4 % (37.0-47.0); Hemoglobin 11.4 g/dL (11.5-15.3); Lymphocytes % 6.1 %; Mean Corpuscular HGB Conc 32.2 g/dL (30.0-36.0); Mean Corpuscular Hemoglobin 29.8 pg (28.0-34.0); Mean Corpuscular Volume 92.4 fl (81-99); Monocytes # 1.6 10^3/uL (0.2-0.9); Monocytes % 10.1 %; Neutrophils # 13.03 10^3/uL (1.8-7.7); Neutrophils % 80.9 %; Nucleated Red Blood Cells % 0 %; Platelet Count 243 10^3/cmm (130-400); Red Blood Count 3.83 10^6/uL (4.1-5.3); Red Cell Distribution Width 14.2 % (12.1-15.1); White Blood Count 16.1 10^3/uL (4.0-10.0)
[2021-04-19 03:18] LABS: Anion Gap 17.3 (5-19); Blood Urea Nitrogen 18 mg/dL (8-23); Calcium 8.3 mg/dL (8.5-10.5); Carbon Dioxide 19 mmol/L (22-29); Chloride 103 mmol/L (98-107); Glomerular Filtration Rate 123.8 mL/min (90-130); Glucose 142 mg/dL (65-115); Magnesium 2.3 mg/dL (1.7-2.3); Osmolality Calculated 284 mOsm/kg (285-295); Potassium 4.3 mmol/L (3.5-5.1); Sodium 135 mmol/L (136-145)
[2021-04-19] MEDS: sodium chlor 0.9% + KCl 20 mEq 20 MEQ/1,000 ML BAG 75 MEQ IV (05:49)
[2021-04-19] MEDS: atorvastatin 40 mg Tablet 20 MG PO (08:56)
[2021-04-19] MEDS: metoprolol tartrate 25 mg Tablet 12.5 MG PO ×2 (08:57→21:32)
[2021-04-19] MEDS: calcium carb-vit d 600mg/400unit 1 Tablet 1 EACH PO (08:57)
[2021-04-19] MEDS: aspirin 81 mg EC Tablet PO (08:57)
[2021-04-19] MEDS: pantoprazole DR 40 mg Tablet PO (08:57)
--- NOTE | 2021-04-19 08:59 | PC.CHAP ---
Pastoral Care Encounter/Spiritual Assessment Type of Contact [] Declined sheet rock sander visit [] Patient/Family/Request visit [] Outpatient visit [] Follow-up visit [] Physician referral [] Code/Alert [x] Routine visit [] Staff referral [] Actively dying [] Patient sleeping [] Family support [] [] Out of room [] Palliative care [] [] Receiving care in room [] Pre-surgical visit [] Trauma [] Long length of stay [] ICU visit [] Other: Relational/Emotional Strength [] Patient feels connected with others/family/visitors/staff [] Distress [] Loneliness/isolation [] Abandonment Spirituality of Patient [] Person of Liv [] Attends Anabaptism of their Liv [] Believes in Prayer [] Reads Bible or Scientology materials [] There are Spiritual issues to be addressed Gathering Worker Interventions [x] Prayer [x] Active listening [x] Non-anxious presence [x] Spiritual/emotional support [] Crisis/trauma care [] Spiritual counseling [] Bereavement support [] Provided bereavement packet [] Provided Bible/devotional materials [] Provided toy/stuffed animal, coloring book to patient or family member [] Provided Communion [] Anointing/[place] [] Salvation [x] Completed spiritual assessment [] Other: Impact on Illness or Injury [] Angry [] Fearful [] Anxious [] Often cries [] Exhaustion [] Unable to work [] Unable to attend mormonism [] Unable to walk/stand [] Unable to read [] Unable to drive [] Unable to eat/drink [] Unable to sleep [] Unable to be with family [] Patient intubated [] Other: Summary patient feeling so much stronger.. heart rate seems under control... Time spent with patient 5 min
[2021-04-19] MEDS: timolol 0.5% Op Soln 5 mL Btl 1 DROP EYEAFF ×2 (10:10→18:45)
[2021-04-19] MEDS: enoxaparin 100 mg/mL Syringe SUBCUT (10:40)
--- NOTE | 2021-04-19 11:57 | PM.PN ---
Subjective Subjective: Interval history: Patient was seen and examined this morning, she is endorsing feeling better however lethargic and fatigued, she has converted to sinus rhythm, she is not in A. fib anymore Plan to discharge her tomorrow, PT evaluation today Vitals/I&O/Wt Last Vital Signs Temp 97.4 F L 04/19/21 08:26 Pulse 82 04/19/21 08:26 Resp 20 H 04/19/21 08:26 BP 141/83 04/19/21 08:26 Pulse Ox 97 04/19/21 08:26 04/18/21 04/19/21 04/19/21 22:59 06:59 14:59 Intake Total 240 / 530 718.75 / 1248.75 Output Total 400 / 400 Balance -160 / 130 718.75 / 848.75 Weight last 48 hrs Weight 101.333 kg Weight 98.883 kg Physical Exam Narrative: EXAM NARRATIVE: Patient resting comfortably in her bed S1, S2 sinus rhythm No murmur Abdomen soft Lower extremity no edema EOMI, PERRLA Nonfocal neuro exam Saturating well on room air Data : 04/19/21 02:31 04/19/21 02:31 Micro: Microbiology 04/17/21 21:03 Blood Culture - Preliminary Blood NEGATIVE TO DATE 04/17/21 21:03 Blood Culture - Preliminary Blood NEGATIVE TO DATE A&P Assessment and plan (1) Obstructive pyelonephritis: Status: Acute (2) Right distal ureteral calculus: Status: Acute (3) Sepsis: Status: Acute Qualifiers: Sepsis acute organ dysfunction status: without acute organ dysfunction Sepsis type: sepsis due to unspecified organism Qualified Code(s): A41.9 - Sepsis, unspecified organism (4) Acute pyelonephritis: Status: Acute (5) Atrial fibrillation with RVR: Status: Acute Additional A&P Information Sepsis Pyonephritis Infected kidney stone status post extraction Repeat blood cultures did not show bacteremia Culture and sensitivity reviewed, will discharge on ciprofloxacin tomorrow Follow-up with Dr. Lezama She has been afebrile Plan to discharge her tomorrow, PT evaluation today To go home on ciprofloxacin 500 mg twice daily 2-week regimen New onset A. fib RVR: Resolved most likely related to sepsis, she converted to sinus rhythm, Patient will contemplate about starting Eliquis, will like to discuss with PCP currently she is in sinus rhythm we will discharge her with event monitor Hypokalemia: Repleted DEBBIE: CPAP at night Cardiac diet DVT prophylaxis Lovenox 40 mg Full code Attestations Medical Necessity Statement*: Continue medical management plan to discharge tomorrow Time Spent in Patient Care: less than 15 minutes Coding Level of Care Code Acute Jointer Submarine Cable for g Fwd Diagnoses Obstructive pyelonephritis N11.1 Right distal ureteral calculus N20.1 Sepsis A41.9 Sepsis acute organ dysfunction status: without acute organ dysfunction Sepsis type: sepsis due to unspecified organism Acute pyelonephritis N10 Atrial fibrillation with RVR I48.91
[2021-04-19] MEDS: latanoprost 0.005% Op Soln 2.5 mL Btl 1 DROP EYE-BOTH (18:44)
[2021-04-19] MEDS: ciprofloxacin 500 mg Tablet PO (21:32)
[2021-04-19] MEDS: acetaminophen 325 mg Tablet 650 MG PO (21:40)
[2021-04-20] VITALS (17 sets, daily range): BP systolic 136–156; BP diastolic 63–78; PULSE 74–85; RESP 15–31; TEMP 36.6–37.6; O2SAT 95–99
[2021-04-20] MEDS: acetaminophen 325 mg Tablet 650 MG PO (04:00)
[2021-04-20 05:28] LABS: Basophils % 0.2 %; Eosinophils # 0.1 10^3/uL (0.0-0.8); Hematocrit 31.6 % (37.0-47.0); Hemoglobin 10.4 g/dL (11.5-15.3); Lymphocytes # 1.8 10^3/uL (0.8-4.8); Lymphocytes % 17.5 %; Mean Corpuscular HGB Conc 32.9 g/dL (30.0-36.0); Mean Corpuscular Hemoglobin 29.5 pg (28.0-34.0); Mean Corpuscular Volume 89.8 fl (81-99); Mean Platelet Volume 10.4 fL (7.4-10.4); Monocytes # 1.1 10^3/uL (0.2-0.9); Monocytes % 10.5 %; Neutrophils # 6.92 10^3/uL (1.8-7.7); Neutrophils % 67.1 %; Nucleated Red Blood Cells % 0 %; Platelet Count 281 10^3/cmm (130-400); Red Blood Count 3.52 10^6/uL (4.1-5.3); Red Cell Distribution Width 14.2 % (12.1-15.1); White Blood Count 10.3 10^3/uL (4.0-10.0)
[2021-04-20 06:07] LABS: Procalcitonin 5.89 ng/mL (0-0.5)
[2021-04-20 06:18] LABS: Anion Gap 16.1 (5-19); Blood Urea Nitrogen 18 mg/dL (8-23); Carbon Dioxide 21 mmol/L (22-29); Chloride 103 mmol/L (98-107); Glomerular Filtration Rate 160.2 mL/min (90-130); Glucose 95 mg/dL (65-115); Osmolality Calculated 284 mOsm/kg (285-295); Potassium 4.1 mmol/L (3.5-5.1); Sodium 136 mmol/L (136-145)
[2021-04-20] MEDS: ciprofloxacin 500 mg Tablet PO ×2 (07:36→22:00)
[2021-04-20] MEDS: pantoprazole DR 40 mg Tablet PO (07:36)
[2021-04-20] MEDS: aspirin 81 mg EC Tablet PO (07:36)
[2021-04-20] MEDS: timolol 0.5% Op Soln 5 mL Btl 1 DROP EYEAFF ×2 (07:37→17:39)
[2021-04-20] MEDS: atorvastatin 40 mg Tablet 20 MG PO (07:37)
[2021-04-20] MEDS: calcium carb-vit d 600mg/400unit 1 Tablet 1 EACH PO (07:37)
[2021-04-20] MEDS: metoprolol tartrate 25 mg Tablet 12.5 MG PO ×2 (07:37→21:57)
--- NOTE | 2021-04-20 11:56 | P.PN_ITS ---
Subjective Subjective: Interval history: Patient is feeling better, afebrile, leukocytosis improving I was about to discharge her today however noticed blood cultures positive for gram-positive cocci in 1 bottle, repeat blood cultures today Vitals/I&O/Wt Last Vital Signs Temp 98 F 04/20/21 11:30 Pulse 74 04/20/21 11:30 Resp 19 H 04/20/21 11:30 BP 139/78 04/20/21 11:30 Pulse Ox 96 04/20/21 11:30 04/19/21 04/20/21 04/20/21 22:59 06:59 14:59 Intake Total 1478.75 / 1478.75 100 / 1578.75 236 / 236 Output Total 500 / 500 700 / 1200 Balance 978.75 / 978.75 -600 / 378.75 236 / 236 Physical Exam Narrative: EXAM NARRATIVE: Laying supine Complaining of headache Nonfocal neuro exam S1, S2 sinus rhythm A. fib changed to normal sinus rhythm yesterday Soft abdomen Looks euvolemic Nonfocal neuro exam Saturating well on room air Data : 04/20/21 04:28 04/20/21 04:28 Micro: Microbiology 04/17/21 20:18 Urine Culture - Final Urine,Clean Catch 04/20/21 09:18 Blood Culture - Preliminary Blood SPECIMEN COLLECTED 04/20/21 09:00 Blood Culture - Preliminary Blood SPECIMEN COLLECTED 04/17/21 21:03 Blood Culture - Preliminary Blood Gram positive cocci A&P Assessment and plan (1) Obstructive pyelonephritis: Status: Acute (2) Right distal ureteral calculus: Status: Acute (3) Sepsis: Status: Acute Qualifiers: Sepsis type: sepsis due to unspecified organism Sepsis acute organ dysfunction status: without acute organ dysfunction Qualified Code(s): A41.9 - Sepsis, unspecified organism (4) Acute pyelonephritis: Status: Acute (5) Acute hypokalemia: Status: Acute (6) Atrial fibrillation with RVR: Status: Acute Additional A&P Information Sepsis related to infected kidney stone and perinephritis: Sepsis resolved Urine and blood culture positive for E. coli, repeat blood culture did not show gram-negative bacteria however gram-positive cocci 1/2 bottles noted rule out contamination, asked patient to stay 1 more day She has been switched to ciprofloxacin for gram-negative bacteremia she will get 2-week regimen Afebrile leukocytosis improved Hypokalemia: Improved Bilateral knee pain history of knee replacement: We will do knee ultrasound today however they do not look infected on clinical exam Hyponatremia: Improved A. fib: Rhythm change to sinus, this was elected related to sepsis, currently metoprolol 12.5 twice daily, patient will be discharged with event monitor, no Eliquis at this point Headache: Migraine: We will give 1 dose of sumatriptan Full code Cardiac diet DVT prophylaxis Lovenox Attestations Medical Necessity Statement*: Discharge tomorrow after final blood culture results Time Spent in Patient Care: less than 15 minutes Coding Level of Care Code Acute Elevator Pilot for [facility] Fwd Diagnoses Obstructive pyelonephritis N11.1 Right distal ureteral calculus N20.1 Sepsis A41.9 Sepsis type: sepsis due to unspecified organism Sepsis acute organ dysfunction status: without acute organ dysfunction Acute pyelonephritis N10 Acute hypokalemia E87.6 Atrial fibrillation with RVR I48.91
[2021-04-20] MEDS: SUMAtriptan 25 mg Tablet PO (12:21)
[2021-04-20] MEDS: enoxaparin 40 mg/0.4 mL Syringe SUBCUT (12:21)
[2021-04-20] MEDS: latanoprost 0.005% Op Soln 2.5 mL Btl 1 DROP EYE-BOTH (17:39)
[2021-04-21] VITALS (16 sets, daily range): BP systolic 130–144; BP diastolic 64–83; PULSE 71–88; RESP 15–24; TEMP 36.8; O2SAT 96
[2021-04-21 02:50] LABS: Basophils # 0.1 10^3/uL (0.0-0.1); Basophils % 0.5 %; Eosinophils # 0.1 10^3/uL (0.0-0.8); Eosinophils % 1.3 %; Hematocrit 32.5 % (37.0-47.0); Hemoglobin 10.3 g/dL (11.5-15.3); Lymphocytes # 1.9 10^3/uL (0.8-4.8); Lymphocytes % 18.4 %; Mean Corpuscular HGB Conc 31.7 g/dL (30.0-36.0); Mean Corpuscular Hemoglobin 29.4 pg (28.0-34.0); Mean Corpuscular Volume 92.9 fl (81-99); Mean Platelet Volume 10.3 fL (7.4-10.4); Monocytes # 1.1 10^3/uL (0.2-0.9); Monocytes % 10.3 %; Neutrophils # 6.63 10^3/uL (1.8-7.7); Neutrophils % 64.6 %; Nucleated Red Blood Cells % 0 %; Platelet Count 287 10^3/cmm (130-400); White Blood Count 10.3 10^3/uL (4.0-10.0)
[2021-04-21 03:31] LABS: Blood Urea Nitrogen 10 mg/dL (8-23); Calcium 8.5 mg/dL (8.5-10.5); Carbon Dioxide 23 mmol/L (22-29); Chloride 101 mmol/L (98-107); Glomerular Filtration Rate 223.3 mL/min (90-130); Glucose 98 mg/dL (65-115); Osmolality Calculated 281 mOsm/kg (285-295); Sodium 136 mmol/L (136-145)
--- NOTE | 2021-04-21 08:13 | XR_ITS ---
WS: [id number] Exam: XR knee RT 1-2V [id number] Date/Time of Exam: 04/21/2021 8:13 AM Reason For Exam: knee pain Comparison 07/18/2017. A total knee prosthesis is in place in satisfactory position. No sign of loosening or fracture. No timmy int effusion is seen. Normal soft tissues. XR/XR knee RT 1-2V [id number] IMPRESSION: 1. Intact total knee replacement. No complications noted.
[2021-04-21] MEDS: aspirin 81 mg EC Tablet PO (08:59)
[2021-04-21] MEDS: calcium carb-vit d 600mg/400unit 1 Tablet 1 EACH PO (08:59)
[2021-04-21] MEDS: pantoprazole DR 40 mg Tablet PO (09:00)
[2021-04-21] MEDS: metoprolol tartrate 25 mg Tablet 12.5 MG PO (09:00)
[2021-04-21] MEDS: ciprofloxacin 500 mg Tablet PO (09:00)
[2021-04-21] MEDS: atorvastatin 40 mg Tablet 20 MG PO (09:00)
[2021-04-21] MEDS: timolol 0.5% Op Soln 5 mL Btl 1 DROP EYEAFF (09:10)
--- NOTE | 2021-04-21 09:23 | PC.SOCIAL ---
IMM update IMM updated with patient. Copy Pg 2 provided. Verbalized an understanding. Initialled, dated, timed, and placed in chart.
--- NOTE | 2021-04-21 09:34 | P.DS_ITS ---
Discharge Providers Date of Admission: 04/18/21 00:20 Date of Discharge: April 21, 2021 Attending Provider at Admission: Krista Mckeon MD Attending Provider at Discharge: Dung Jordan MD Primary Care Provider: Tommy Cutler MD Diagnoses at Discharge Discharge Diagnosis (1) Obstructive pyelonephritis: Status: Acute (2) Right distal ureteral calculus: Status: Acute (3) Sepsis: Status: Acute Qualifiers: Sepsis acute organ dysfunction status: without acute organ dysfunction Sepsis type: sepsis due to unspecified organism Qualified Code(s): A41.9 - Sepsis, unspecified organism (4) Acute pyelonephritis: Status: Acute (5) Acute hypokalemia: Status: Acute (6) Atrial fibrillation with RVR: Status: Acute Reason for Visit Reason for Visit: Heart Rate 150 Erratic\Blood Pressure Low Hospital Course Hospital Course History of Present Illness by Dr. Mckeon Stephanie Koroma is a 65 year old female with PMH HTN, HLD presenting with one week of fever, chills, generalized weakness. Symptoms started one week ago with fever between 103-105F, right sided flank pain one week ago which then subsided, increased frequency of micturition (has a h/o cytsocoele) over the past week. Visited her primary care provider on , underwent UA and COVID PCR. Was notified of the results yesterday of which UA was positive and covid PCR negative (results N/A). Started prescription for ciprofloxacin this morning. She had been in the ER yesterday due to tmax 103F at home along with increasing weakness to the point of needing walker for ambulation at home. UA +. urine cx prelim with GNR, leukocytosis 12-14. Discharged home with po abx. At 3:30 this afternoon, started to experience light headedness, papitatios, could not obtain pulse ox on oximeter and BP reading was low at home. Additionally her daughter, who is an SUPERVISOR [employer] checked in on her and dnoted irregular HR up to 150bpm. On arrival at ER noted to have A fib with RVR with HR 150s.BP 87-[address] a [address] scan of the abdomen to evalute for obstructive pyelonephritis- showed 3.6mm stone in the right ureterovesicular junction with mild right h ydronpehrosis and mild perinephric inflammation. VAccinated for COVID 19, completed 2 dose mrna series and booster Mar 2021. Hospital course Patient was admitted for management of sepsis related to pyelonephritis, infected stone, status post cystoscopy, right retrograde ureterogram, ureteroscopy with stone manipulation right ureteral stent placement 7 Tajik by 28 cm double-pigtail without string, leukocytosis improved, patient was kept on IV ceftriaxone antibiotics, urine culture grew E. coli, she also had bacteremia, 3/3 bottles positive with E. coli, her ceftriaxone was switched to ciprofloxacin p.o. regimen after clinical improvement, repeat blood cultures were negative, on repeat blood culture Staphylococcus saprophyticus which is a contaminant, she remained afebrile, she was complaining of bilateral knee pain, however no active infection identified, she has history of knee replacement, I requested right knee x-ray(unremarkable). Patient will follow up with Dr. Lezama, she will be discharged home with p.o. ciprofloxacin 2-week regimen, Please note, secondary to high D-dimer and new onset A. fib I requested CTA chest which ruled out pulmonary embolism, her atrial fibrillation converted to sinus rhythm, she remained in A. fib for about 8 to 10 hours and then converted to sinus rhythm, I discussed in detail the indication for anticoagulating agent with the patient, [id number] score 2 for sex and hypertension. She remained in A. fib for short amount of time, she will be discharged with an event monitor for 2 weeks, Dr. East was notified. For now I have put her on metoprolol 12.5 mg twice daily along with her home dose of aspirin. Physical Exam Narrative: EXAM NARRATIVE: Sitting at the bedside eating breakfast Nonfocal neuro exam S1, S2 sinus rhythm A. fib changed to normal sinus rhythm yesterday Soft abdomen Looks euvolemic Nonfocal neuro exam Saturating well on room air Discharge Data Data Completed and Pending: Completed Studies During Hospitalization Category Date Time Status CT angio chest PE protcl [id number] Rout ine Cat Scan 04/18/21 10:[address] kidney stone 7 [id number] Urgent Cat Scan 04/17/21 21:24 Completed XR chest 1V martinez ble [id number] Stat Exams 04/17/21 21:34 Completed XR knee RT 1-2V 7 [id number] Stat Exams 04/21/21 08:13 Completed CV. echo complete * [id number] Routine Ultrasound 04/18/21 23:50 Completed Pending at discharge Category Date Time Status Blood Culture Sta t Lab 04/17/21 21:03 Results Blood Culture Sta t Lab 04/20/21 09:18 Results Labs from last 24 hours 04/21/21 04/21/21 02:16 02:16 WBC 10.3 H RBC 3.50 L Hgb 10.3 L Hct 32.5 L MCV 92.9 MCH 29.4 MCHC 31.7 RDW 14.0 Plt Count 287 MPV 10.3 Neut % (Auto) 64.6 Lymph % (Auto) 18.4 [place] % (Auto) 10.3 Eos % (Auto) 1.3 Baso % (Auto) 0.5 Neut # (Auto) 6.63 Lymph # (Auto) 1.9 [place] # (Auto) 1.1 H Eos # (Auto) 0.1 Baso # (Auto) 0.1 Nucleated RBC % (a uto) 0 Nucleated RBCs # 0.0 Sodium 136 Potassium 4.0 Chloride 101 Carbon Dioxide 23 Anion Gap 16.0 BUN 10 Creatinine 0.3 L GFR Calculation 223.3 H Glucose 98 Calculated Osmolal ity 281 L Calcium 8.5 Procalcitonin 2.50 H Vitals: Last Vital Signs Temp 98.3 F 04/21/21 04:00 Pulse 77 04/21/21 09:26 Resp 15 04/21/21 09:26 BP 142/72 04/21/21 09:26 Pulse Ox 96 04/21/21 04:00 Discharge Plan Discharge Patient Disposition: Home Condition: Stable Prescriptions: New ciprofloxacin HCl 500 mg tablet 500 mg PO BID 14 Days Qty: 28 RF: 0 metoprolol tartrate 25 mg tablet 12.5 mg PO BID Qty: 60 RF: 4 Continued ondansetron 4 mg tablet,disintegrating 4 mg PO Q8H 3 Days Qty: 9 RF: 0 latanoprost 0.005 % Drops 1 drp OPHTHALMIC (EYE) QPM RF: 0 Lipitor 20 mg Tablet 20 mg PO DAILY RF: 0 Zyrtec 10 mg Tablet 10 mg PO DAILY RF: 0 lisinopril-hydrochlorothiazide 20-12.5 mg Tablet 1 tab PO DAILY RF: 0 timolol 0.5 % Drops 1 drp ophthalmic (eye) BID RF: 0 coenzyme Q10 200 mg Tablet 200 mg PO DAILY RF: 0 omeprazole 20 mg Capsule,Delayed Release(Dr/Ec) 20 mg PO DAILY RF: 0 Centrum Silver 0.4-300-250 mg-mcg-mcg Tablet 1 tab PO DAILY RF: 0 Calcium 600 + D(3) 600 mg(1,500mg) -400 unit Tablet 1 tab PO DAILY RF: 0 Estroven Mood and Memory 400 mcg Tablet 1 tab PO DAILY RF: 0 aspirin 81 mg Capsule 81 mg PO DAILY RF: 0 melatonin 3 mg Tablet 3 mg PO BEDTIME RF: 0 Discontinued meloxicam 15 mg Tablet 15 mg PO DAILY RF: 0 Discharge Orders: Discharge Order (Routine); Ordered 04/21/21 Ordered By: Ney Lezama Other Ambulatory Orders: CA cardiac event monitor (Routine) Timeframe: 2 Weeks Facility: [facility] [place] - Location: Cardiac Diagnostic Laboratory Ordered By: Dung Jordan Physical Therapy Eval and Treat Outpatient (Order) Timeframe: 1 Week Facility: [facility] [place] - Location: Physical Therapy Ordered By: Dung Jordan Referrals: Ney Lezama MD [Physician] - 04/25/21 10:00 am (You will have an appointment with Dr. Lezama on Sunday, April 25, 2021 at 10:00am. If you have any questions please call the clinic at [phone]. You will have a cystoscopy stent removal with no KUB necessary that was discussed with Dr. Lezama.) Tommy Cutler MD [Primary Care Provider] - 7-10 days (You will have a follow- up appointment with Dr. Cutler on SaturdayMay 01 at 1 pm. If you need to reschedule pls call [phone]. Thank You.) Discharge Diet: Regular Discharge Activity: Increase activity as tolerated Patient Instructions: Ciprofloxacin (By mouth), Metoprolol (By mouth), Kidney Stones (DC), Fall Prevention (DC), Ureteral Stent Placement (DC), Opioid Safety, Pyelonephritis Activity Restrictions/Additional Instructions: You can come to the main entrance in surgery area for a follow-up on BMP and CBC in 3 days. Heart care services will call you regarding the cardiac event monitor. Bring your order to the clinic. If you have not heard from them by Saturday, please call at [phone]. Discharge Attestations Time Spent in Discharge Care*: less than 30 min Quality Metrics Clinical Quality Measures During this hospital stay, did patient experience: None Coding Level of Care Code Acute Chg FW DC note Diagnoses Obstructive pyelonephritis N11.1 Right distal ureteral calculus N20.1 Sepsis A41.9 Sepsis acute organ dysfunction status: without acute organ dysfunction Sepsis type: sepsis due to unspecified organism Acute pyelonephritis N10 Acute hypokalemia E87.6 Atrial fibrillation with RVR I48.91
--- NOTE | 2021-04-21 10:30 | PC.NURSE ---
pt wants to have a shower before discharge.
--- NOTE | 2021-04-21 11:23 | PM.MISC ---
Miscellaneous Note Purpose of Documentation: Work note Note: Patient was diagnosed with sepsis due to pyelonephritis, status post procedure, she is getting appropriate treatment with antibiotics for next 2 weeks, She can start her work from 04/26, she can resume her work on 04/26 without any limitations
--- NOTE | 2021-04-21 12:23 | PC.NURSE ---
pt stated she will wait for her as her ride.
--- NOTE | 2021-04-21 12:38 | PC.NURSE ---
Discharge Note Patient discharged to home via wheelchair accompanied by . Discharge instructions reviewed with patient and/or front office representative. Mobile pharmacy medications and/or prescriptions provided. Belongings/home medications returned.
--- NOTE | 2021-05-04 11:45 | PC.SOCIAL ---
spoke with pt regarding placement of cardiac event monitor. at this time pt is waiting to have placed. pt reports she is seeing dr. chandler for heart concerns.
== END 2021-04-21 11:45 | disposition home or self-care (01) | DRG 854 ==
LOC: ER 21:33 → CSU 22:20
PROVIDERS: Nurse Practitioner Family; Urology; Admitting Provider Student in an Organized Health Care Education/Training Program; Emergency Provider Emergency Medicine; PCP Family Medicine; Visit Provider Internal Medicine
PROC: 0TJB8ZZ Inspection of Bladder, Via Natural or Artificial Opening Endoscopic (ICD-10-PCS; CPT 52000; principal; 2021-04-18 06:15)
PROC: 0T768DZ Dilation of Right Ureter with Intraluminal Device, Via Natural or Artificial Opening Endoscopic (ICD-10-PCS; CPT 50605; 2021-04-18 06:15)
PROC: 0T768DZ Dilation of Right Ureter with Intraluminal Device, Via Natural or Artificial Opening Endoscopic (ICD-10-PCS; CPT 74420; 2021-04-18 06:15)
PROC: 0TJ98ZZ Inspection of Ureter, Via Natural or Artificial Opening Endoscopic (ICD-10-PCS; CPT 52351; 2021-04-18 06:15)
DX: A41.9 Sepsis, unspecified organism (principal); N10 Acute pyelonephritis; N13.2 Hydronephrosis with renal and ureteral calculous obstruction; E87.1 Hypo-osmolality and hyponatremia; N39.0 Urinary tract infection, site not specified; I48.91 Unspecified atrial fibrillation; Z87.440 Personal history of urinary (tract) infections; I10 Essential (primary) hypertension; E78.5 Hyperlipidemia, unspecified; G47.33 Obstructive sleep apnea (adult) (pediatric); Z99.89 Dependence on other enabling machines and devices; Z96.653 Presence of artificial knee joint, bilateral; I95.9 Hypotension, unspecified; E87.6 Hypokalemia; Z79.82 Long term (current) use of aspirin; B96.20 Unspecified Escherichia coli [E. coli] as the cause of diseases classified elsewhere
CPT/HCPCS: 36415; 36416; 71045; 71275; 73560; 74176; 76000; 76705; 80048; 80053; 80306; 81001; 82962; 83605; 83735; 84145; 84439; 84443; 84484; 85025; 85378; 87040; 87077; 87086; 87186; 87205; 87426; 87635; 93005; 93306; 94660; 96361; 96365; 96372; 96375; 97110; 97116; 97162; 99284; 99285; C2625; G0378; J0696; J1100; J1650; J1885; J2250; J2405; J2704; J3010; J3490; J7030; Q9967

== ENCOUNTER → 2021-04-25 14:10 | Outpatient (BNVA) | payer MEDICARE, SELFPAY | PROVIDERS: PCP Family Medicine; Visit Provider Urology | DX: N20.9 Urinary calculus, unspecified (principal); N17.9 Acute kidney failure, unspecified; N11.1 Chronic obstructive pyelonephritis; Z96.0 Presence of urogenital implants | CPT/HCPCS: 80048; 81003; 85025 ==

== ENCOUNTER 2021-05-01 06:00 | Outpatient (RCR) | payer MEDICARE, SELFPAY | END 2021-05-02 23:59 | disposition home or self-care (01) | LOC: APT 06:00 | PROVIDERS: PCP Family Medicine; Referring Provider Internal Medicine; Visit Provider Internal Medicine | DX: M17.10 Unilateral primary osteoarthritis, unspecified knee (principal) | CPT/HCPCS: 97110; 97163 ==

== ENCOUNTER 2021-05-03 06:00 | Outpatient (RCR) | payer MEDICARE, SELFPAY | END 2021-06-02 23:59 | disposition home or self-care (01) | LOC: APT 06:00 | PROVIDERS: PCP Family Medicine; Referring Provider Internal Medicine; Visit Provider Internal Medicine | DX: M17.0 Bilateral primary osteoarthritis of knee (principal) | CPT/HCPCS: 97110; 97140; 97164 ==

== ENCOUNTER 2021-06-03 06:00 | Outpatient (RCR) | payer MEDICARE, SELFPAY | END 2021-07-03 23:59 | disposition home or self-care (01) | LOC: APT 06:00 | PROVIDERS: PCP Family Medicine; Visit Provider Internal Medicine | DX: M17.0 Bilateral primary osteoarthritis of knee (principal) | CPT/HCPCS: 97110; 97140 ==

== ENCOUNTER 2021-07-04 06:00 | Outpatient (RCR) | payer MEDICARE, SELFPAY | END 2021-07-18 23:59 | disposition home or self-care (01) | LOC: APT 06:00 | PROVIDERS: PCP Family Medicine; Visit Provider Internal Medicine | DX: M17.0 Bilateral primary osteoarthritis of knee (principal) | CPT/HCPCS: 97110; 97530 ==

== ENCOUNTER 2021-08-01 11:50 | Outpatient (CLI) | payer MEDICARE, SELFPAY ==
--- NOTE | 2021-08-01 12:00 | XR_ITS ---
WS: [id number] KUB, AP view, 08/01/2021 Clinical Data: UROLITHIASIS, PT AT [facility] Comparison: None. Findings: No abnormal intraabdominal masses or calcifications are seen. There is no dilatated small bowel or ev idence of obstruction. There are phleboliths in the true pelvis. There is a large amount of fecal material present. XR/XR KUB [id number] Impression: Negative KUB.
== END 2021-08-01 11:51 | disposition home or self-care (01) ==
LOC: RAD 11:57
PROVIDERS: PCP Family Medicine; Visit Provider Urology
DX: N20.9 Urinary calculus, unspecified (principal)
CPT/HCPCS: 74018; 81003

== ENCOUNTER 2021-11-07 06:00 | Outpatient (RCR) | payer MEDICARE, SELFPAY | END 2021-11-30 23:59 | disposition home or self-care (01) | LOC: APT 06:00 | PROVIDERS: PCP Family Medicine; Referring Provider Podiatrist; Visit Provider Podiatrist | DX: M72.2 Plantar fascial fibromatosis (principal) | CPT/HCPCS: 97110; 97140; 97163 ==

== ENCOUNTER 2021-12-01 06:00 | Outpatient (RCR) | payer MEDICARE, SELFPAY | END 2021-12-31 23:59 | disposition home or self-care (01) | LOC: APT 06:00 | PROVIDERS: PCP Family Medicine; Referring Provider Podiatrist; Visit Provider Podiatrist | DX: M72.2 Plantar fascial fibromatosis (principal) | CPT/HCPCS: 97110; 97140 ==

== ENCOUNTER 2022-01-01 06:00 | Outpatient (RCR) | payer MEDICARE, SELFPAY | END 2022-01-18 23:59 | disposition home or self-care (01) | LOC: APT 06:00 | PROVIDERS: PCP Family Medicine; Referring Provider Podiatrist; Visit Provider Podiatrist | DX: M72.2 Plantar fascial fibromatosis (principal) | CPT/HCPCS: 97110; 97140 ==

== ENCOUNTER → 2023-01-15 12:43 | Outpatient (BNVA) | payer MEDICARE, SELFPAY | PROVIDERS: PCP Family Medicine; Visit Provider Family Medicine | DX: Z51.81 Encounter for therapeutic drug level monitoring (principal); Z13.220 Encounter for screening for lipoid disorders; E11.9 Type 2 diabetes mellitus without complications | CPT/HCPCS: 80053; 80061; 83036; 83735; 85025 ==

== ENCOUNTER 2023-11-27 13:50 | Outpatient (CLI) | payer MEDICARE, SELFPAY ==
--- NOTE | 2023-11-27 13:56 | XR_ITS ---
WS: [id number] Exam: XR ankle LT min 3V* [id number] Date/Time of Exam: 11/27/2023 1:59 PM Reason For Exam: Ankle pain There is a nondisplaced fracture through the medial malleolus. No other obvious fractures are noted. Soft tissue swelling about the ankle. XR/XR ankle LT min 3V* [id number] IMPRESSION: 1. Nondisplaced medial malleolar fracture. Soft tissue swelling.
== END 2023-11-27 13:51 | disposition home or self-care (01) ==
LOC: RAD 13:51
PROVIDERS: PCP Family Medicine; Visit Provider Internal Medicine
DX: S82.55XA Nondisplaced fracture of medial malleolus of left tibia, initial encounter for closed fracture (principal); M25.50 Pain in unspecified joint; Z51.81 Encounter for therapeutic drug level monitoring; R30.0 Dysuria
CPT/HCPCS: 73610; 80053; 81000; 85025; 85651; 86038; 86141; 86431; 87077; 87086; 87184

== ENCOUNTER 2024-02-02 06:30 | Outpatient (RCR) | payer MEDICARE, SELFPAY | END 2024-03-02 23:59 | disposition home or self-care (01) | LOC: APT 06:30 | PROVIDERS: Visit Provider Family Medicine | DX: M84.372D Stress fracture, left ankle, subsequent encounter for fracture with routine healing (principal) | CPT/HCPCS: 97110; 97161; 97530 ==

== ENCOUNTER 2024-03-03 06:00 | Outpatient (RCR) | payer MEDICARE, SELFPAY | END 2024-04-02 23:59 | disposition home or self-care (01) | LOC: APT 06:00 | PROVIDERS: Visit Provider Family Medicine | DX: M84.372D Stress fracture, left ankle, subsequent encounter for fracture with routine healing (principal) | CPT/HCPCS: 97110; 97112; 97530 ==

== ENCOUNTER → 2024-03-26 09:30 | Outpatient (BNVA) | payer MEDICARE, SELFPAY | PROVIDERS: PCP Family Medicine; Visit Provider Podiatrist Foot & Ankle Surgery | DX: L60.0 Ingrowing nail (principal) | CPT/HCPCS: 11750; 99203 ==

== ENCOUNTER 2024-04-03 06:00 | Outpatient (RCR) | payer MEDICARE, SELFPAY | END 2024-05-02 23:59 | disposition home or self-care (01) | LOC: APT 06:00 | PROVIDERS: PCP Family Medicine; Visit Provider Family Medicine | DX: M84.372D Stress fracture, left ankle, subsequent encounter for fracture with routine healing (principal) | CPT/HCPCS: 97110; 97112; 97530 ==

== ENCOUNTER 2024-05-03 06:00 | Outpatient (RCR) | payer MEDICARE, SELFPAY | END 2024-06-02 23:59 | disposition home or self-care (01) | LOC: APT 06:00 | PROVIDERS: PCP Family Medicine; Visit Provider Family Medicine | DX: M84.372D Stress fracture, left ankle, subsequent encounter for fracture with routine healing (principal) | CPT/HCPCS: 97110; 97112; 97530 ==

== ENCOUNTER → 2024-05-08 11:14 | Outpatient (BNVA) | payer MEDICARE, SELFPAY | PROVIDERS: PCP Family Medicine; Visit Provider Family Medicine | DX: Z13.220 Encounter for screening for lipoid disorders (principal); Z51.81 Encounter for therapeutic drug level monitoring; E53.8 Deficiency of other specified B group vitamins; E03.9 Hypothyroidism, unspecified; I10 Essential (primary) hypertension; R73.03 Prediabetes; E55.9 Vitamin D deficiency, unspecified | CPT/HCPCS: 80053; 80061; 82306; 82607; 83036; 84443; 85025 ==

== ENCOUNTER 2024-06-10 09:48 | Outpatient (CLI) | payer MEDICARE, SELFPAY ==
--- NOTE | 2024-06-10 10:00 | US_ITS ---
WS: [id number] RIGHT UPPER QUADRANT ULTRASOUND HISTORY: Elevated transaminases COMPARISON: 04/16/2021 Liver: 14.6 cm in length. Normal size liver and echogenicity. No bile duct dilatation or mass. Portal Vein: Normal hepatopetal flow with monophasic waveform. Gallbladder: Poorly visualized gallbladder. Gallbladder is slightly contracted. No stones are identif ied. CBD: 0.3 cm Pancreas: Nonvisualized. Right kidney: 11.2 cm in length. Lobulated cortical surface with areas of focal sparing. No obstructi on. Aorta and IVC: Unremarkable abdominal aorta and IVC. No ascites. US/US liver [id number] IMPRESSION: 1. Limited RIGHT upper quadrant ultrasound due to body habitus and bowel jae nt. 2. Gallbladder is slightly contracted. No stones identified. 3. Negative liver. 4. Nonvisualization of the pancreas.
== END 2024-06-10 09:49 | disposition home or self-care (01) ==
PROVIDERS: PCP Family Medicine; Visit Provider Family Medicine
DX: R74.01 Elevation of levels of liver transaminase levels (principal); R93.421 Abnormal radiologic findings on diagnostic imaging of right kidney
CPT/HCPCS: 76705

== ENCOUNTER → 2024-06-11 09:13 | Outpatient (BNVA) | payer MEDICARE, SELFPAY | PROVIDERS: PCP Family Medicine; Visit Provider Podiatrist Foot & Ankle Surgery | DX: L60.3 Nail dystrophy (principal) | CPT/HCPCS: 10060 ==

== ENCOUNTER → 2024-07-31 12:21 | Outpatient (BNVA) | payer MEDICARE, SELFPAY | PROVIDERS: PCP Family Medicine; Visit Provider Family Medicine | DX: R74.01 Elevation of levels of liver transaminase levels (principal); Z51.81 Encounter for therapeutic drug level monitoring | CPT/HCPCS: 80053; 82977 ==

== ENCOUNTER → 2024-12-15 09:34 | Outpatient (BNVA) | payer MEDICARE, SELFPAY | PROVIDERS: PCP Family Medicine; Visit Provider Family Medicine | DX: Z51.81 Encounter for therapeutic drug level monitoring (principal); E55.9 Vitamin D deficiency, unspecified | CPT/HCPCS: 80053; 82306; 85025 ==